=== PATIENT | male | born 1940 | race Caucasian/White ===

== ENCOUNTER 2017-05-30 09:48 | Inpatient (IN) | payer OTHER, MEDICARE ==
[~2017-05-30] VITALS: Ht 180.3 cm; Wt 61.0 kg
[~2017-05-30 09:48] MED LIST: AMOX875 PO; LISI-587 PO; MEDR4PAK3 PO; MEVA40TA PO; NAPR-576 PO
[2017-05-30 09:50] VITALS: BP 160/64; PULSE 102; RESP 20; TEMP 98; O2SAT 100
[2017-05-30] MEDS ORDERED: MECLIZINE HCL 25 MG TAB PO ONE (10:45)
[2017-05-30] MEDS ORDERED: ONDANSETRON ODT 4 MG TAB SL ONE (10:45)
--- NOTE | 2017-05-30 10:54 | PD ---
HPI Chief Complaint: Syncope/Near-Syncope Time Seen by Provider: 10:25 Travel History International Travel<30 days: No Contact w/Intl Traveler<30days: No Traveled to known affect area: No History of Present Illness HPI This patient complains of having vertigo this morning. He had a true room spinning sensation and got dizzy and fell. He did not lose consciousness. He is not having headache today. He does mention that he is had pain in the back of his neck for the last 3 weeks. No injury to it. Denies fever. No other neurologic complaint. He fell he scraped his left knee but is been ambulatory since. Severity is moderate. No alleviating factors. No exacerbating factors. Speech slurring or confusion or specific muscle group weakness. PFSH Past Medical History Hx Anticoagulant Therapy: No Arthritis: Yes Cardiovascular Problems: No (HTN) High Cholesterol: Yes Chemotherapy: No Cerebrovascular Accident: No Diabetes: No Hypertension: Yes Respiratory: No Tetanus Vaccination: < 5 Years Past Surgical History Surgical History: No Previous Surgery Social History Alcohol Use: Yes (OCC) Tobacco Use: No Substance Use: No Allergies-Medications (Allergen,Severity, Reaction): Coded Allergies: No Known Allergies (Unverified Adverse Reaction, Unknown, 05/30/17) Reported Meds & Prescriptions Reported Meds & Active Scripts Active Amoxil (Amoxicillin) 875 Mg Tab 875 Mg PO BID 10 Days Medrol Dosepak (Methylprednisolone) 4 Mg Franklyn 4 Mg PO DIRECTED TAKE DIRECTED Reported Zestoretic 20/25 (HCTZ/Lisinopril) Tab 1 Tab PO DAILY Naproxen 500 Mg Tab 500 Mg PO BID Lovastatin 40 Mg Tab 40 Mg PO HS Review of Systems General / Constitutional: No: Fever Eyes: No: Visual changes HENT: Positive: Vertigo, Lightheadedness, Neck Pain, No: Headaches Cardiovascular: No: Chest Pain or Discomfort Respiratory: No: Shortness of Breath Gastrointestinal: No: Abdominal Pain Genitourinary: No: Dysuria Musculoskeletal: Positive: Arthralgias, No: Pain Skin: No Rash Neurologic: No: Weakness Psychiatric: No: Depression Endocrine: No: Polydipsia Hematologic/Lymphatic: No: Easy Bruising Physical Exam Narrative GENERAL: Well-nourished, well-developed patient in no apparent distress. SKIN: Focused skin assessment reveals no rash and nodules. Skin is Warm and dry. HEAD: Atraumatic. Normocephalic. EYES: Pupils equal and round. No scleral icterus. No injection or drainage. ENT: No nasal bleeding or discharge. Mucous membranes pink and moist. NECK: Trachea midline. No JVD. No midline tenderness. No bruising or swelling. CARDIOVASCULAR: Regular rate and rhythm. No murmur appreciated. RESPIRATORY: No accessory muscle use. Clear to auscultation. Breath sounds equal bilaterally. GASTROINTESTINAL: Abdomen soft, non-tender, nondistended. Hepatic and splenic margins not palpable. MUSCULOSKELETAL: No obvious deformities. No clubbing. No cyanosis. No edema. Some abrasion to the left knee without tenderness NEUROLOGICAL: Awake and alert. No obvious cranial nerve deficits. Motor grossly within normal limits. Normal speech. PSYCHIATRIC: Appropriate mood and affect; insight and judgment normal. Data Data Last Documented VS Vital Signs Date Time Temp Pulse Resp B/P (MAP) Pulse Ox O2 Delivery O2 Flow Rate FiO2 05/30/17 09:50 98.0 102 20 160/64 (96) 100 Room Air Orders Orders Iv Access Insert/Monitor (05/30/17 10:32) Complete Blood Count With Diff (05/30/17 10:32) Basic Metabolic Panel (Bmp) (05/30/17 10:32) Spine, Cervical - Ltd (Ap&Lat) (05/30/17 ) Electrocardiogram (05/30/17 ) Meclizine (Antivert) (05/30/17 10:45) Ondansetron Odt (Zofran Odt) (05/30/17 10:45) Admit Order (Ed Use Only) (05/30/17 13:19) Labs Laboratory Tests Test 05/30/17 10:55 White Blood Count 8.2 TH/MM3 Red Blood Count 3.94 MIL/MM3 Hemoglobin 7.9 GM/DL Hematocrit 24.8 % Mean Corpuscular Volume 63.0 FL Mean Corpuscular Hemoglobin 20.0 PG Mean Corpuscular Hemoglobin Concent 31.8 % Red Cell Distribution Width 17.6 % Platelet Count 366 TH/MM3 Mean Platelet Volume 7.6 FL Neutrophils (%) (Auto) 78.8 % Lymphocytes (%) (Auto) 11.4 % Monocytes (%) (Auto) 8.1 % Eosinophils (%) (Auto) 0.3 % Basophils (%) (Auto) 1.4 % Neutrophils # (Auto) 6.4 TH/MM3 Lymphocytes # (Auto) 0.9 TH/MM3 Monocytes # (Auto) 0.7 TH/MM3 Eosinophils # (Auto) 0.0 TH/MM3 Basophils # (Auto) 0.1 TH/MM3 CBC Comment DIFF FINAL Differential Comment Blood Urea Nitrogen 32 MG/DL Creatinine 1.27 MG/DL Random Glucose 108 MG/DL Calcium Level 9.1 MG/DL Sodium Level 135 MEQ/L Potassium Level 4.1 MEQ/L Chloride Level 101 MEQ/L Carbon Dioxide Level 24.7 MEQ/L Anion Gap 9 MEQ/L Estimat Glomerular Filtration Rate 55 ML/MIN MDM Medical Decision Making Medical Screen Exam Complete: Yes Emergency Medical Condition: Yes Medical Record Reviewed: Yes Differential Diagnosis Vertigo, cardiac arrhythmia, flu syndrome Narrative Course I have reviewed the patient's electronic medical record. Last known hemoglobin was 15 No real objective findings on exam. He is neurologically intact. I gave him a dose of meclizine and Zofran IV placed CBC shows hemoglobin of 7.9 Metabolic profile reasonably normal other than elevated BUN is expected I reviewed his EKG which shows sinus rhythm and no ST elevation or ectopy I reviewed her cervical spine x-rays which shows minor degenerative change He has no meningeal signs This patient had a presyncopal episode as well as GI bleed with anemia. I discussed with the hospitalist will admit Since this hospital is full administration is asking that we admit them to the [facility] which I have done The hospitalist here is doing history and physical and writing admission orders Diagnosis Primary Impression: GI bleed Qualified Codes: K92.2 - Gastrointestinal hemorrhage, unspecified Additional Impressions: Anemia Qualified Codes: D64.9 - Anemia, unspecified Pre-syncope Admitting Information Admitting Physician Requests: Admit Donny Barrera MD May 30, 2017 10:54
--- NOTE | 2017-05-30 11:08 | RADRPT ---
EXAM DATE/TIME: 05/30/2017 10:41 [facility] COMPARISON: No previous studies available for comparison. INDICATIONS : Dizziness. Posterior neck stiffness. MEDICAL HISTORY : None. SURGICAL HISTORY : None. ENCOUNTER: Initial ACUITY: 1 day PAIN SCORE: 2/10 LOCATION: posterior c-spine FINDINGS: AP and lateral views of the cervical spine were obtained as well as odontoid views. This demonstrates mild osteopenia normal alignment. Degenerative disc changes are present at the C5-6 and C6-7 levels with mild disc space narrowing and hypertrophic change. The prevertebral soft tissues are within norm al limits. The dens is intact. CONCLUSION: 1. No acute fracture or malalignment. 2. Degenerative disc change at C5-6 and C6-7. Panchito Wilkes MD on May 30, 2017 at 11:05 Board Certified Radiologist. This report was verified electronically.
[2017-05-30 11:28] LABS: EOSINOPHIL % 0.3 % (0.0-4.0); HEMATOCRIT 24.8 % (39.0-51.0); HEMOGLOBIN 7.9 GM/DL (13.0-17.0); LYMPH % 11.4 % (9.0-44.0); MEAN CORPUSCULAR HGB CONC 31.8 % (32.0-36.0); MEAN PLATELET VOLUME 7.6 FL (7.0-11.0); MONO % 8.1 % (0.0-8.0); NEUT % 78.8 % (16.0-70.0); PLATELET COUNT 366 TH/MM3 (150-450); RED BLOOD COUNT 3.94 MIL/MM3 (4.50-5.90); RED CELL DISTRIBUTION WIDTH 17.6 % (11.6-17.2); WHITE BLOOD COUNT 8.2 TH/MM3 (4.0-11.0)
[2017-05-30 11:29] LABS: AUTOMATED NEUTROPHIL # 6.4 TH/MM3 (1.8-7.7); BASOPHIL # 0.1 TH/MM3 (0-0.2); BASOPHIL % 1.4 % (0.0-2.0); LYMPHOCYTE # 0.9 TH/MM3 (1.0-4.8); MONOCYTE # 0.7 TH/MM3 (0-0.9)
[2017-05-30 11:46] LABS: BICARBONATE 24.7 MEQ/L (21.0-32.0); CALCIUM 9.1 MG/DL (8.5-10.1); CREATININE 1.27 MG/DL (0.60-1.30)
--- NOTE | 2017-05-30 13:24 | HHI.HP ---
[facility] Primary Care Physician Magali Ordaz MD Admission Diagnosis Diagnoses: Chief Complaint: syncope, black stools Travel History International Travel<30 Days: No Contact w/Intl Traveler <30 Da: No Traveled to Known Affected Are: No History of Present Illness Written by Leslie Jackson, acting as scribe for Dr. Suazo on 05/30/17 at 13: 19. 76-year-old male with hypertension, hyperlipidemia, arthritis, presents after a syncopal episode with black stools. The patient reports earlier today while he was at work, he became dizzy with blurred vision, fell to the floor, attempted to ambulate again then passed out. Denies hitting his head. He presented to the ED with left knee pain. Upon arrival to the ED, labs remarkable for Hgb 7.9. He denies any history of anemia. He admits to noticing black stools for a few weeks now. Denies hematochezia, hematuria, or hematemesis. He denies any fever/ chills, abdominal pain, nausea, vomiting, or diarrhea. He believes he had an unremarkable colonoscopy 3-5years ago by colorectal surgeon Dr. Russell. He's never had an EGD. He admits to occasional shortness of breath, worse with exertion recently. Denies any chest pain. He's felt more fatigued over the past few weeks. His daughter reports he's lost "a lot" of weight over the past 6months but unable to quantify. He states his appetite is good and denies any recent changes in eating habits. He does state he had some vague abdominal pain 3 months ago, saw his PCP, and he was started on omeprazole at that time. He denies taking any NSAIDs. He follows with PCP Dr. Ordaz only. 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 Review of Systems Except as stated in HPI: all other systems reviewed are Neg Past Family Social History Past Medical History Hypertension Hyperlipidemia Past Surgical History Colonoscopy Reported Medications Zestoretic 20/25 (HCTZ/Lisinopril) Tab 1 Tab PO DAILY Lovastatin 40 Mg Tab 40 Mg PO HS Omeprazole 20mg daily Latanoprost opth eye drops 0.005% 2.5ML Allergies: Coded Allergies: No Known Allergies (Unverified Allergy, Unknown, 05/30/17) Active Ordered Medications Current Medications Medications (Trade) Dose Ordered Sig/Lito Route Start Time Stop Time Status Last Admin Sodium Chloride 250 ml @ 15 mls/hr ONCE ONCE IV 05/30/17 13:45 05/31/17 06:24 UNV (Lasix Inj) 20 mg ONCE ONCE IV PUSH 05/30/17 13:45 05/30/17 13:46 UNV (Vasotec Inj) 1.25 mg Q8H PRN IV PUSH 05/30/17 13:45 UNV Sodium Chloride 1,000 ml @ 75 mls/hr [id number] IV 05/30/17 13:33 UNV (NS Flush) 2 ml UNSCH PRN IV FLUSH 05/30/17 13:45 UNV (NS Flush) 2 ml BID IV FLUSH 05/30/17 21:00 UNV (Zofran Inj) 4 mg Q6H PRN IVP 05/30/17 13:45 UNV (Tylenol) 650 mg Q6H PRN PO 05/30/17 13:45 UNV (Pattison 5-325 Mg) 1 tab Q4H PRN PO 05/30/17 13:45 UNV (Morphine Inj) 2 mg Q4H PRN IV PUSH 05/30/17 13:45 UNV (Narcan Inj) 0.4 mg UNSCH PRN IV PUSH 05/30/17 13:45 UNV (Milk Of Magnesia Liq) 30 ml Q12H PRN PO 05/30/17 13:45 UNV (Senokot) 17.2 mg Q12H PRN PO 05/30/17 13:45 UNV (Dulcolax Supp) 10 mg DAILY PRN RECTAL 05/30/17 13:45 UNV (Protonix Inj) 40 mg Q12H IV PUSH 05/30/17 13:45 UNV Family History Mother with heart disease age 89 Father age 96 with heart attack Social History Smoked tobacco for 5 years, quit 45 years ago Very rare alcohol use Denies any illicit drug use Physical Exam Vital Signs Vital Signs Date Time Temp Pulse Resp B/P (MAP) Pulse Ox O2 Delivery O2 Flow Rate FiO2 05/30/17 09:50 98.0 102 20 160/64 (96) 100 Room Air Physical Exam GENERAL: Well-developed well-nourished pleasant elderly male patient in [facility]. SKIN: Warm and dry. Pale. HEAD: Atraumatic. Normocephalic. EYES: Pupils equal and round. Subconjunctival pallor. No scleral icterus. ENT: No nasal bleeding or discharge. Mucous membranes pink and moist. NECK: Trachea midline. CARDIOVASCULAR: Regular rate and rhythm. No murmur appreciated. RESPIRATORY: No accessory muscle use. Clear to auscultation. Breath sounds equal bilaterally. GASTROINTESTINAL: Abdomen soft, non-tender, nondistended. Hepatic and splenic margins not palpable. MUSCULOSKELETAL: Extremities without clubbing, cyanosis, or edema. No obvious deformities. NEUROLOGICAL: Awake and alert. No obvious cranial nerve deficits. Motor grossly within normal limits. Moving all extremities spontaneously. Normal speech. PSYCHIATRIC: Appropriate mood and affect; insight and judgment normal. Laboratory Laboratory Tests Test 05/30/17 10:55 White Blood Count 8.2 Red Blood Count 3.94 Hemoglobin 7.9 Hematocrit 24.8 Mean Corpuscular Volume 63.0 Mean Corpuscular Hemoglobin 20.0 Mean Corpuscular Hemoglobin Concent 31.8 Red Cell Distribution Width 17.6 Platelet Count 366 Mean Platelet Volume 7.6 Neutrophils (%) (Auto) 78.8 Lymphocytes (%) (Auto) 11.4 Monocytes (%) (Auto) 8.1 Eosinophils (%) (Auto) 0.3 Basophils (%) (Auto) 1.4 Neutrophils # (Auto) 6.4 Lymphocytes # (Auto) 0.9 Monocytes # (Auto) 0.7 Eosinophils # (Auto) 0.0 Basophils # (Auto) 0.1 CBC Comment DIFF FINAL Differential Comment Blood Urea Nitrogen 32 Creatinine 1.27 Random Glucose 108 Calcium Level 9.1 Sodium Level 135 Potassium Level 4.1 Chloride Level 101 Carbon Dioxide Level 24.7 Anion Gap 9 Estimat Glomerular Filtration Rate 55 Result Diagram: 05/30/17 1055 05/30/17 1055 Imaging Last Impressions Cervical Spine X-Ray 05/30/17 0000 Signed Impressions: Service Date/Time: May 10:41 - CONCLUSION: 1. No acute fracture or malalignment. 2. Degenerative disc change at C5-6 and C6-7. MD Shabana Nieves VTE Risk Assessment Caprini VTE Risk Assessment: Mod/High Risk (score >= 2) VTE Pharm Contraindication: Active bleeding Caprini Risk Assessment Model Point Value = 1 Point Value = 2 Point Value = 3 Point Value = 5 Age 41-60 Minor surgery BMI > 25 kg/m2 Swollen legs Varicose veins or History of unexplained or recurrent spontaneous Oral contraceptives or hormone replacement Sepsis (< 1 month) Serious lung disease, including pneumonia (< 1 month) Abnormal pulmonary function Acute myocardial infarction Congestive heart failure (< 1 month) History of inflammatory bowel disease Medical patient at bed rest Age 61-74 Arthroscopic surgery Major open surgery (> 45 min) Laparoscopic surgery (> 45 min) Malignancy Confined to bed (> 72 hours) Immobilizing plaster cast Central venous access Age >= 75 History of VTE Family history of VTE Factor V Leiden Prothrombin [id number] Lupus anticoagulant Anticardiolipin antibodies Elevated serum homocysteine Heparin-induced thrombocytopenia Other congenital or acquired thrombophilia Stroke (< 1 month) Elective arthroplasty Hip, pelvis, or leg fracture Acute spinal cord injury (< 1 month) Prophylaxis Regimen Total Risk Factor Score Risk Level Prophylaxis Regimen 0-1 Low Early ambulation 2 Moderate Order ONE of the following: *Sequential Compression Device (SCD) *Heparin 5000 units SQ BID 3-4 Higher Order ONE of the following medications: *Heparin 5000 units SQ TID *Enoxaparin/Lovenox 40 mg SQ daily (WT < 150 kg, CrCl > 30 mL/min) *Enoxaparin/Lovenox 30 mg SQ daily (WT < 150 kg, CrCl > 10-29 mL/min) *Enoxaparin/Lovenox 30 mg SQ BID (WT < 150 kg, CrCl > 30 mL/min) AND/OR *Sequential Compression Device (SCD) 5 or more Highest Order ONE of the following medications: *Heparin 5000 units SQ TID (Preferred with Epidurals) *Enoxaparin/Lovenox 40 mg SQ daily (WT < 150 kg, CrCl > 30 mL/min) *Enoxaparin/Lovenox 30 mg SQ daily (WT < 150 kg, CrCl > 10-29 mL/min) *Enoxaparin/Lovenox 30 mg SQ BID (WT < 150 kg, CrCl > 30 mL/min) AND *Sequential Compression Device (SCD) Assessment and Plan Assessment and Plan 76-year-old male with hypertension, hyperlipidemia, arthritis, presents after a syncopal episode with black stools. Symptomatic Anemia suspect secondary to GI Bleed: Hgb 7.9, previously 15.9 in 2012. Rectal exam done by ER physician positive for melena, Hemoccult+. -transfuse 2u pRBCs now -monitor serial H&H -keep NPO for now -start on IV Protonix 40mg q12h -supportive treatment with IVF hydration, antiemetics prn, pain control prn -consult gastroenterology Syncope: suspect secondary to anemia as above in combination with mild dehydration. -giving blood transfusion x2u -continue IVF hydration -monitor for improvement Dehydration, Mild ADRIENNE: Cr 1.27, previously 0.93 in 2012. -give IVF hydration at 75cc/hr -repeat BMP in am Hypertension: chronic, stable -hold patient lisinopril and hctz for now -monitor BP, add antihypertensives as needed DVT Prophylaxis: teds/SCDs; avoid chemoprophylaxis with GI bleed as above the above note was scribed by Ms. Leslie Jackson ( MELL). I attest that I had a [id number] encounter with the patient and personally performed the physical exam, medical decision making and reviewed the findings and plan with the patient. Leslie Jackson PA-C May 30, 2017 13:23 Madina Suazo MD May 30, 2017 14:24
[2017-05-30] MEDS ORDERED: SENNOSIDES 8.6 MG TAB PO PRN (13:45)
[2017-05-30] MEDS ORDERED: SODIUM CHLORIDE 0.9% FLUSH 10 ML FLUSH IV FLUSH PRN (13:45)
[2017-05-30] MEDS ORDERED: SODIUM CHLOR 0.9% 250 ML INJ 250 ML IV ONE (13:45)
[2017-05-30] MEDS ORDERED: BISACODYL 10 MG SUPP RECTAL PRN (13:45)
[2017-05-30] MEDS ORDERED: MAGNESIUM HYDROXIDE SUSP 30 ML CUP PO PRN (13:45)
[2017-05-30] MEDS ORDERED: ACETAMINOPHEN/HYDROcodone 325 MG/5 MG TAB PO PRN (13:45)
[2017-05-30] MEDS ORDERED: MORPHINE SULFATE 2 MG/ML INJ IV PUSH PRN (13:45)
[2017-05-30] MEDS ORDERED: ENALAPRILAT 1.25 MG/ML VIAL IV PUSH PRN (13:45)
[2017-05-30] MEDS ORDERED: ONDANSETRON HCL 4 MG/2 ML VIAL IVP PRN (13:45)
[2017-05-30] MEDS ORDERED: NALOXONE HCL 0.4 MG/ML AMP IV PUSH PRN (13:45)
[2017-05-30] MEDS ORDERED: ACETAMINOPHEN 325 MG TAB PO PRN (13:45)
[2017-05-30] MEDS ORDERED: OMEP20TA93 PO (13:48)
[2017-05-30] MEDS ORDERED: LISI-515 PO (13:51)
[2017-05-30] MEDS ORDERED: LOVA40TA PO (13:51)
[2017-05-30] MEDS ORDERED: LATA0.002 EACH EYE (13:51)
[2017-05-30] MEDS ORDERED: FUROSEMIDE 20 MG/2 ML VIAL IV PUSH PRN (14:00)
[2017-05-30] MEDS: SODIUM CHLOR 0.9% 1000 ML INJ 1,000 ML IV SCH (14:37)
[2017-05-30] MEDS: PANTOPRAZOLE SODIUM 40 MG VIAL IV PUSH SCH (14:37)
[2017-05-30 14:45] VITALS: BP 133/65; PULSE 72; RESP 18; O2SAT 100
--- NOTE | 2017-05-30 15:36 | PD.CONS ---
HPI History of Present Illness This is a 76 year old M who presented to the emergency department today after having a syncopal episode at 4:30am this morning. Denies chest pain of SOB prior to episode. Pt reports black, tarry stools for the past month, has been having about one BM a day, but today reports having multiple. Also complaining of intermittent epigastric and upper abdominal pain for the past month. Was recently started on Omeprazole by his PCP with mild relief in pain. Denies nausea, vomiting. Does report an unintentional weight loss of approx 20 pounds over the past month. Denies NSAIDs, blood thinners, ETOH, smoking. Has never had an EGD. Last colonoscopy was 3-[address] Russell and pt reports normal exam. Currently H/H are 7.9/24.8. Pt is being transferred to [facility] in [place] due to no beds available at this facility. Pt to be followed by our service, Dr. Cantu. (Aliya Garcia) PFSH Past Medical History Hypertension Hyperlipidemia Past Surgical History Colonoscopy (Aliya Garcia) Coded Allergies: No Known Allergies (Unverified Allergy, Unknown, 05/30/17) Family History Mother with heart disease age 89 Father age 96 with heart attack Social History Smoked tobacco for 5 years, quit 45 years ago Denies ETOH Denies any illicit drug use (Aliya Garcia) Review of Systems Constitutional: COMPLAINS OF: Dizziness Respiratory: DENIES: Shortness of breath Cardiovascular: DENIES: Chest pain, Palpitations Gastrointestinal: COMPLAINS OF: Abdominal pain, Black stools, DENIES: Bloody stools, Constipation, Diarrhea, Nausea, Vomiting, Odynophagia, Heartburn, Hematemesis (Aliya Garcia) GI Exam Vitals I&O Vital Signs Date Time Temp Pulse Resp B/P (MAP) Pulse Ox O2 Delivery O2 Flow Rate FiO2 05/30/17 14:45 72 18 133/65 (87) 100 Room Air 05/30/17 09:50 98.0 102 20 160/64 (96) 100 Room Air Imaging Last Impressions Cervical Spine X-Ray 05/30/17 0000 Signed Impressions: Service Date/Time: May 10:41 - CONCLUSION: 1. No acute fracture or malalignment. 2. Degenerative disc change at C5-6 and C6-7. Panchito Wilkes MD Laboratory Test 05/30/17 10:55 White Blood Count 8.2 TH/MM3 Red Blood Count 3.94 MIL/MM3 Hemoglobin 7.9 GM/DL Hematocrit 24.8 % Mean Corpuscular Volume 63.0 FL Mean Corpuscular Hemoglobin 20.0 PG Mean Corpuscular Hemoglobin Concent 31.8 % Red Cell Distribution Width 17.6 % Platelet Count 366 TH/MM3 Mean Platelet Volume 7.6 FL Neutrophils (%) (Auto) 78.8 % Lymphocytes (%) (Auto) 11.4 % Monocytes (%) (Auto) 8.1 % Eosinophils (%) (Auto) 0.3 % Basophils (%) (Auto) 1.4 % Neutrophils # (Auto) 6.4 TH/MM3 Lymphocytes # (Auto) 0.9 TH/MM3 Monocytes # (Auto) 0.7 TH/MM3 Eosinophils # (Auto) 0.0 TH/MM3 Basophils # (Auto) 0.1 TH/MM3 CBC Comment DIFF FINAL Differential Comment Blood Urea Nitrogen 32 MG/DL Creatinine 1.27 MG/DL Random Glucose 108 MG/DL Calcium Level 9.1 MG/DL Sodium Level 135 MEQ/L Potassium Level 4.1 MEQ/L Chloride Level 101 MEQ/L Carbon Dioxide Level 24.7 MEQ/L Anion Gap 9 MEQ/L Estimat Glomerular Filtration Rate 55 ML/MIN Physical Examination HEENT: Normocephalic; atraumatic CHEST: Even/unlabored CARDIAC: RRR ABDOMEN: Soft, nondistended, nontender; no hepatosplenomegaly; bowel sounds active EXTREMITIES: No clubbing, cyanosis, or edema. SKIN: No rash; no jaundice. Abrasion to left knee and left elbow. 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 (Aliya Garcia) Assessment and Plan Plan Assessment - Melena- Complaining of black, tarry stools x 1 month, increasing in frequency today. Presented after syncopal episode. H/H currently 7.9/24.8. Denies NSAIDs, blood thinners, ETOH, smoking. Has never had EGD. Plan for EGD tomorrow. Pt has 2 U PRBC ordered per attending. - Weight loss- 20 pound weight loss over the past month. Last colonoscopy was approx 3-5 years ago, reports normal exam. Will plan for CT abdomen and pelvis today and colonoscopy tomorrow. Plan: - EGD/colonoscopy tomorrow - Obtain consents - Clear liquids today - NPO after MN - GoLytely prep - CT abdomen and pelvis W/O IV contrast (due to GFR 55) - Monitor H/H - Transfuse as needed - Protonix - Supportive care - Further recommendations to follow based on results of above (Aliya Garcia) Physician Comments seen, examined agree with above (Anne Slaughter MD) Aliya Garcia May 30, 2017 15:36 Anne Slaughter MD May 30, 2017 16:44
[2017-05-30 16:00] VITALS: BP 146/69; PULSE 76; RESP 18; TEMP 97.5; O2SAT 100
[2017-05-30] MEDS ORDERED: PEG (High)/E-LYTE SOLN 4000 ML BTL PO ONE (16:00)
[2017-05-30 16:05] LABS: % SATURATION IRON PROFILE 2.4 % (20-50); ALBUMIN 3.9 GM/DL (3.4-5.0); ALT (GPT) 21 U/L (12-78); AST (GOT) 22 U/L (15-37); DIRECT BILIRUBIN ADULT 0.1 MG/DL (0.0-0.2); IRON (FE) 12 MCG/DL (65-175); TOTAL IRON BINDING CAPACITY 493 MCG/DL (250-450)
[2017-05-30 16:08] LABS: ALKALINE PHOSPHATASE 61 U/L (45-117); FERRITIN 5 NG/ML (26-388); INDIRECT BILIRUBIN 0.2 MG/DL (0.0-0.8); TOTAL BILIRUBIN ADULT 0.3 MG/DL (0.2-1.0); TOTAL PROTEIN 7.6 GM/DL (6.4-8.2)
[2017-05-30] MEDS ORDERED: DIATRIZOATE MEGLUM/DIATRIZOATE SOD 9 ML CUP PO ONE (18:45)
[2017-05-30] MEDS: SODIUM CHLORIDE 0.9% FLUSH 10 ML FLUSH IV FLUSH SCH (20:10)
[2017-05-30 20:48] VITALS: BP 143/65; PULSE 81; RESP 20; TEMP 97.6; O2SAT 100
[2017-05-30 21:03] VITALS: BP 116/57; PULSE 77; RESP 20; TEMP 98; O2SAT 99
[2017-05-30 23:45] VITALS: BP 125/60; PULSE 76; RESP 20; TEMP 97.7; O2SAT 98
[2017-05-31] VITALS: BP 132/66; PULSE 74; RESP 20; TEMP 97.1; O2SAT 99
[2017-05-31] MEDS: PANTOPRAZOLE SODIUM 40 MG VIAL IV PUSH SCH ×2 (02:47→12:41)
[2017-05-31 06:44] VITALS: BP 151/88; PULSE 78; RESP 20; TEMP 98.6; O2SAT 99
[2017-05-31 06:54] LABS: AUTOMATED NEUTROPHIL # 3.4 TH/MM3 (1.8-7.7); BASOPHIL % 0.9 % (0.0-2.0); EOSINOPHIL # 0.1 TH/MM3 (0-0.4); HEMATOCRIT 31.1 % (39.0-51.0); HEMOGLOBIN 9.5 GM/DL (13.0-17.0); LYMPH % 17.2 % (9.0-44.0); LYMPHOCYTE # 0.9 TH/MM3 (1.0-4.8); MEAN CELL VOLUME 69.3 FL (80.0-100.0); MEAN CORPUSCULAR HEMOGLOBIN 21.1 PG (27.0-34.0); MEAN CORPUSCULAR HGB CONC 30.4 % (32.0-36.0); MEAN PLATELET VOLUME 7.5 FL (7.0-11.0); MONO % 11.2 % (0.0-8.0); MONOCYTE # 0.6 TH/MM3 (0-0.9); NEUT % 68.7 % (16.0-70.0); PLATELET COUNT 263 TH/MM3 (150-450); RED CELL DISTRIBUTION WIDTH 22.2 % (11.6-17.2)
[2017-05-31 07:07] LABS: CALCIUM 8.5 MG/DL (8.5-10.1)
[2017-05-31 07:08] LABS: BICARBONATE 29.8 MEQ/L (21.0-32.0)
[2017-05-31 07:11] LABS: CREATININE 1.1 MG/DL (0.60-1.30)
[2017-05-31 07:31] LABS: OVALOCYTES 1+ (NORMAL)
--- NOTE | 2017-05-31 07:59 | PD.PROCEDR ---
GI Procedure PROCEDURE PERFORMED EGD with biopsy, colonoscopy INDICATION FOR PROCEDURE Anemia PROCEDURE: The procedure, risks and benefits were discussed with Mr. Arrington and informed consent was obtained. Anesthesia sedated him with Diprivan. He was placed in the left lateral decubitus position. EGD: The Pentax videoscope was introduced through the oropharynx and advanced to the second portion of the duodenum under direct visualization. Retroflexion was performed in the stomach. Large ulcerated mass in the body of the stomach most likely consistent with malignancy biopsy was done FINDINGS: Large gastric ulcerated mass in the body with fresh blood most likely the source of the bleeding Colonoscopy: The Pentax videoscope was introduced through the rectum and advanced to to the ascending colon, the colon was very tortuous and the scope kept looping, not sure if I reached the cecum. Retroflexion was performed in the rectum. Colonic prep was good, FINDINGS: Possibly incomplete colon, the examined area was normal ESTIMATED BLOOD LOSS: None SPECIMENS REMOVED: Body of the stomach COMPLICATIONS: None IMPRESSION: Gastric mass possible malignancy PLAN: Air contrast barium enema Oncology consult Surgical consult Await biopsy results CT of the abdomen and pelvis Aniya Cai MD May 31, 2017 07:59
--- NOTE | 2017-05-31 08:04 | HHI.GIFU ---
Subjective Remarks Patient laying in bed comfortably without any new complaint, no abdominal pain, tolerated prep Objective Vitals I&O Vital Signs Date Time Temp Pulse Resp B/P (MAP) Pulse Ox O2 Delivery O2 Flow Rate FiO2 05/31/17 06:44 98.6 78 20 151/88 (109) 99 05/31/17 00:00 97.1 74 20 132/66 99 05/30/17 23:45 97.7 76 20 125/60 98 05/30/17 21:03 98.0 77 20 116/57 99 05/30/17 20:48 97.6 81 20 143/65 100 05/30/17 16:00 97.5 76 18 146/69 (94) 100 05/30/17 15:24 05/30/17 14:45 72 18 133/65 (87) 100 Room Air 05/30/17 09:50 98.0 102 20 160/64 (96) 100 Room Air I/O 05/30/17 05/30/17 05/30/17 05/31/17 05/31/17 05/31/17 07:00 15:00 23:00 07:00 15:00 23:00 Intake Total 223 ml 800 ml Balance 223 ml 800 ml Intake Oral 0 ml IV Total 223 ml Packed Cells 800 ml # Voids 5 Laboratory Laboratory Tests Test 05/30/17 10:55 05/31/17 05:44 White Blood Count 8.2 5.0 Red Blood Count 3.94 4.50 Hemoglobin 7.9 9.5 Hematocrit 24.8 31.1 Mean Corpuscular Volume 63.0 69.3 Mean Corpuscular Hemoglobin 20.0 21.1 Mean Corpuscular Hemoglobin Concent 31.8 30.4 Red Cell Distribution Width 17.6 22.2 Platelet Count 366 263 Mean Platelet Volume 7.6 7.5 Neutrophils (%) (Auto) 78.8 68.7 Lymphocytes (%) (Auto) 11.4 17.2 Monocytes (%) (Auto) 8.1 11.2 Eosinophils (%) (Auto) 0.3 2.0 Basophils (%) (Auto) 1.4 0.9 Neutrophils # (Auto) 6.4 3.4 Lymphocytes # (Auto) 0.9 0.9 Monocytes # (Auto) 0.7 0.6 Eosinophils # (Auto) 0.0 0.1 Basophils # (Auto) 0.1 0.0 CBC Comment DIFF FINAL AUTO DIFF Differential Comment AUTO DIFF CONFIRMED Blood Urea Nitrogen 32 22 Creatinine 1.27 1.10 Random Glucose 108 78 Calcium Level 9.1 8.5 Sodium Level 135 140 Potassium Level 4.1 4.0 Chloride Level 101 104 Carbon Dioxide Level 24.7 29.8 Anion Gap 9 6 Estimat Glomerular Filtration Rate 55 65 Iron Level 12 Total Iron Binding Capacity 493 Percent Iron Saturation 2.4 Ferritin 5 Total Bilirubin 0.3 Direct Bilirubin 0.1 Indirect Bilirubin 0.2 Aspartate Amino Transf (AST/SGOT) 22 Alanine Aminotransferase (ALT/SGPT) 21 Alkaline Phosphatase 61 Total Protein 7.6 Albumin 3.9 Ovalocytes 1+ Physical Exam HEENT: Pupils round and reactive to light; normocephalic; atraumatic; no jaundice. Throat is clear. NECK: Neck is supple, no JVD, no lymphadenopathy. CHEST: Chest is clear to auscultation and percussion. CARDIAC: Regular rate and rhythm with no murmur gallop or rubs. ABDOMEN: Soft, nondistended, nontender; no hepatosplenomegaly; bowel sounds are present in all four quadrants. EXTREMITIES: No clubbing, cyanosis, or edema. SKIN: Normal; no rash; no jaundice. 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 Assessment and Plan Plan Assessment - Melena- Complaining of black, tarry stools x 1 month, increasing in frequency today. Presented after syncopal episode. H/H currently 7.9/24.8. Denies NSAIDs, blood thinners, ETOH, smoking. Has never had EGD. Plan for EGD tomorrow. Pt has 2 U PRBC ordered per attending. - Weight loss- 20 pound weight loss over the past month. Last colonoscopy was approx 3-5 years ago, reports normal exam. Will plan for CT abdomen and pelvis today and colonoscopy tomorrow. 05/31/2018 Patient hemoglobin is stable, no more bleeding, tolerated prep, did not get CT scan yet, had an upper endoscopy and a colonoscopy IMPRESSION: Gastric mass possible malignancy Redundant colon, not sure if we went all the way to the cecum PLAN: Air contrast barium enema Oncology consult Surgical consult Await biopsy results CT of the abdomen and pelvis Aniya Cai MD May 31, 2017 08:03
--- NOTE | 2017-05-31 08:19 | HHI.PR ---
Subjective Remarks Feels better today. Tired. No n/v/d/c. No abd pain . Denies chest pain or sob. Appetite is fairly well. Objective Vitals Vital Signs Date Time Temp Pulse Resp B/P (MAP) Pulse Ox O2 Delivery O2 Flow Rate FiO2 05/31/17 06:44 98.6 78 20 151/88 (109) 99 05/31/17 00:00 97.1 74 20 132/66 99 05/30/17 23:45 97.7 76 20 125/60 98 05/30/17 21:03 98.0 77 20 116/57 99 05/30/17 20:48 97.6 81 20 143/65 100 05/30/17 16:00 97.5 76 18 146/69 (94) 100 05/30/17 15:24 05/30/17 14:45 72 18 133/65 (87) 100 Room Air 05/30/17 09:50 98.0 102 20 160/64 (96) 100 Room Air I/O 05/30/17 05/30/17 05/30/17 05/31/17 05/31/17 05/31/17 07:00 15:00 23:00 07:00 15:00 23:00 Intake Total 223 ml 800 ml Balance 223 ml 800 ml Intake Oral 0 ml IV Total 223 ml Packed Cells 800 ml # Voids 5 Result Diagram: 05/31/17 0544 05/31/17 0544 Imaging Last Impressions Cervical Spine X-Ray 05/30/17 0000 Signed Impressions: Service Date/Time: May 10:41 - CONCLUSION: 1. No acute fracture or malalignment. 2. Degenerative disc change at C5-6 and C6-7. Panchito Wilkes MD Objective Remarks GENERAL: Well-developed well-nourished pleasant elderly male patient in [facility]. CARDIOVASCULAR: Regular rate and rhythm. No murmur appreciated. RESPIRATORY: No accessory muscle use. Clear to auscultation. Breath sounds equal bilaterally. GASTROINTESTINAL: Abdomen soft, non-tender, nondistended. Hepatic and splenic margins not palpable. MUSCULOSKELETAL: Extremities without clubbing, cyanosis, or edema. No obvious deformities. NEUROLOGICAL: Awake and alert. No obvious cranial nerve deficits. Motor grossly within normal limits. Moving all extremities spontaneously. Normal speech. PSYCHIATRIC: Appropriate mood and affect; insight and judgment normal. A/P Assessment and Plan 76-year-old male with hypertension, hyperlipidemia, arthritis, presents after a syncopal episode with black stools. Symptomatic Anemia secondary to GI Bleed from possible gastric mass S/P EGD with biopsy, colonoscopy. With Gastric mass possible malignancy Hgb 7.9, on admission, previously 15.9 in 2012. Rectal exam done by ER physician positive for melena, Hemoccult+. -s/p transfusion 2u pRBCs -monitor serial H&H -on IV Protonix 40mg q12h -supportive treatment with IVF hydration, antiemetics prn, pain control prn -consult gastroenterology, ff -S/P EGD with biopsy, colonoscopy. With Gastric mass possible malignancy -Air contrast barium enema -Oncology consult -Surgical consult -Biopsy results are oending -CT of the abdomen and pelvis Syncope: suspect secondary to anemia as above in combination with mild dehydration. -giving blood transfusion x2u -continue IVF hydration -monitor for improvement Dehydration, Mild ADRIENNE: Cr 1.27, previously 0.93 in 2012. -give IVF hydration at 75cc/hr -repeat BMP in am Hypertension: chronic, stable -hold patient lisinopril and hctz for now -monitor BP, add antihypertensives as needed DVT Prophylaxis: teds/SCDs; avoid chemoprophylaxis with GI bleed as above Discussed with the patient, nurse Rosangela Barksdale MD May 31, 2017 08:19
[2017-05-31 08:40] VITALS: BP 133/69; PULSE 63; RESP 18; TEMP 97; O2SAT 100
[2017-05-31] MEDS ORDERED: PNEUMOCOCCAL POLYVALENT INJ 25 MCG/0.5 ML SYR IM ONE (10:00)
[2017-05-31] MEDS: SODIUM CHLORIDE 0.9% FLUSH 10 ML FLUSH IV FLUSH SCH ×2 (11:10→20:00)
[2017-05-31] MEDS: SODIUM CHLOR 0.9% 1000 ML INJ 1,000 ML IV SCH ×2 (11:10→16:13)
[2017-05-31] MEDS ORDERED: DIATRIZOATE MEGLUM/DIATRIZOATE SOD 9 ML CUP PO ONE (11:45)
[2017-05-31 12:00] VITALS: BP_SYST 135; BP_SYST 142; BP_DIAS 67; PULSE 74; PULSE 78; RESP 18; TEMP 97.8; TEMP 99.1; O2SAT 98
[2017-05-31 13:50] LABS: CARCINOEMBRYONIC ANTIGEN 0.7 NG/ML (0.2-5.0)
[2017-05-31 14:26] LABS: CA 19-9 3.8 U/ML (0.0-35.0)
[2017-05-31 14:37] LABS: CA 15-3 18.2 U/ML (0.0-32.4)
--- NOTE | 2017-05-31 14:56 | RADRPT ---
EXAM DATE/TIME: 05/31/2017 13:24 [facility] COMPARISON: No previous studies available for comparison. INDICATIONS : Upper abdominal pain, black tarry stools and weight loss x 1 month. ORAL CONTRAST: Prescribed oral contrast ingested. RADIATION DOSE: 6.90 CTDIvol (mGy) MEDICAL HISTORY : Hypertension. SURGICAL HISTORY : None. ENCOUNTER: Initial ACUITY: 1 month PAIN SCALE: 2/10 LOCATION: upper quadrant TECHNIQUE: Volumetric scanning of the abdomen and pelvis was performed. Using automated exposure control and ad justment of the mA and/or kV according to patient size, radiation dose was kept as low as reasonably achievable to obtain optimal diagnostic quality images. DICOM format image data is available electro nically for review and comparison. FINDINGS: LOWER LUNGS: The visualized lower lungs are clear. LIVER: Homogeneous density without lesion. There is no dilation of the biliary tree. No calcified gallston es. SPLEEN: Normal size without lesion. PANCREAS: Within normal limits. KIDNEYS: Normal in size and shape. There is no mass, stone, or hydronephrosis. ADRENAL GLANDS: Within normal limits. VASCULAR: There is no aortic aneurysm. BOWEL/MESENTERY: There appears to be some lobular wall thickening involving the antrum of the stomach. There are some separate circumscribed lobular masses adjacent to the greater curvature in the region of the antrum a nd also in the gastrohepatic ligament which may be enlarged lymph nodes or other peritoneal masses. I ntravenous contrast would be required for better delineation. The large and small bowel are normal in caliber. There is a small volume of free pelvic fluid which is nonspecific. ABDOMINAL WALL: Within normal limits. RETROPERITONEUM: There is no lymphadenopathy. BLADDER: No wall thickening or mass. REPRODUCTIVE: Within normal limits. INGUINAL: There is no lymphadenopathy or hernia. MUSCULOSKELETAL: Within normal limits for patient age. CONCLUSION: Probable wall thickening involving the antrum of the stomach and adjacent lobular soft tissue density masses which may be enlarged lymph nodes or other peritoneal masses. Small volume of free pelvic flu id. CT of the abdomen with IV contrast would be suggested for further evaluation if feasible. Robert Morrissey MD on May 31, 2017 at 14:44 Board Certified Radiologist. This report was verified electronically.
--- NOTE | 2017-05-31 16:24 | PD.ONC.PN ---
Objective Data Date Time Temp Pulse Resp B/P (MAP) Pulse Ox O2 Delivery O2 Flow Rate FiO2 05/31/17 12:00 99.1 74 18 142/67 (92) 98 05/31/17 08:40 97.0 63 18 133/69 (90) 100 05/31/17 08:23 59 16 118/58 (78) 100 05/31/17 08:15 64 16 91/57 (68) 100 05/31/17 07:53 97.9 68 16 103/56 (72) 100 05/31/17 06:44 98.6 78 20 151/88 (109) 99 05/31/17 00:00 97.1 74 20 132/66 99 05/30/17 23:45 97.7 76 20 125/60 98 05/30/17 21:03 98.0 77 20 116/57 99 05/30/17 20:48 97.6 81 20 143/65 100 05/31/17 05/31/17 05/31/17 07:00 15:00 23:00 Intake Total 800 ml 950 ml Balance 800 ml 950 ml Result Diagram: 05/31/17 0544 05/31/17 0544 Laboratory Results Laboratory Tests Test 05/31/17 05:44 05/31/17 10:04 White Blood Count 5.0 TH/MM3 Red Blood Count 4.50 MIL/MM3 Hemoglobin 9.5 GM/DL Hematocrit 31.1 % Mean Corpuscular Volume 69.3 FL Mean Corpuscular Hemoglobin 21.1 PG Mean Corpuscular Hemoglobin Concent 30.4 % Red Cell Distribution Width 22.2 % Platelet Count 263 TH/MM3 Mean Platelet Volume 7.5 FL Neutrophils (%) (Auto) 68.7 % Lymphocytes (%) (Auto) 17.2 % Monocytes (%) (Auto) 11.2 % Eosinophils (%) (Auto) 2.0 % Basophils (%) (Auto) 0.9 % Neutrophils # (Auto) 3.4 TH/MM3 Lymphocytes # (Auto) 0.9 TH/MM3 Monocytes # (Auto) 0.6 TH/MM3 Eosinophils # (Auto) 0.1 TH/MM3 Basophils # (Auto) 0.0 TH/MM3 CBC Comment AUTO DIFF Differential Comment AUTO DIFF CONFIRMED Ovalocytes 1+ Blood Urea Nitrogen 22 MG/DL Creatinine 1.10 MG/DL Random Glucose 78 MG/DL Calcium Level 8.5 MG/DL Sodium Level 140 MEQ/L Potassium Level 4.0 MEQ/L Chloride Level 104 MEQ/L Carbon Dioxide Level 29.8 MEQ/L Anion Gap 6 MEQ/L Estimat Glomerular Filtration Rate 65 ML/MIN Carcinoembryonic Antigen 0.7 NG/ML CA 15-3 Antigen 18.2 U/ML CA 19-9 Antigen 3.8 U/ML Imaging Studies Last 24 hours Impressions Abdomen/Pelvis CT 05/31/17 0000 Signed Impressions: Service Date/Time: Wednesday, May 31, 2017 13:24 - CONCLUSION: Probable wall thickening involving the antrum of the stomach and adjacent lobular soft tissue density masses which may be enlarged lymph nodes or other peritoneal masses. Small volume of free pelvic fluid. CT of the abdomen with IV contrast would be suggested for further evaluation if feasible. Robert Morrissey MD Administered Medications Medications (Trade) Dose Ordered Sig/Lito Route PRN Reason Start Time Stop Time Status Last Admin Dose Admin Sodium Chloride 1,000 ml @ 75 mls/hr [id number] IV 05/30/17 13:33 05/31/17 11:10 Sodium Chloride (NS Flush) 2 ml BID IV FLUSH 05/30/17 21:00 05/31/17 11:10 Pantoprazole Sodium (Protonix Inj) 40 mg Q12H IV PUSH 05/30/17 14:00 05/31/17 12:41 Objective Remarks GENERAL: Well-nourished, well-developed patient. SKIN: Warm and dry. HEAD: Normocephalic. EYES: No scleral icterus. No injection or drainage. NECK: Supple, trachea midline. No JVD or lymphadenopathy. LYMPHATIC: No adenopathy. CARDIOVASCULAR: Regular rate and rhythm without murmurs. RESPIRATORY: Breath sounds equal bilaterally. No accessory muscle use. GASTROINTESTINAL: Abdomen soft, non-tender, nondistended. EXTREMITIES: No cyanosis, or edema. MUSCULOSKELETAL: Adequate muscle tone. NEUROLOGICAL: No obvious focal deficit. Awake, alert, and oriented x3. PSYCHIATRIC: Appropriate mood and affect; insight and judgment normal. Josué Roa MD May 31, 2017 16:24
--- NOTE | 2017-05-31 16:45 | EKG ---
Date Performed: 05/30/2017 Time Performed: 11:28:31 PTAGE: 76 years EKG: Sinus rhythm NORMAL ECG NO PREVIOUS TRACING DOCTOR: Kalpesh Ivey Interpretating Date/Time 05/31/2017 16:45:19
[2017-05-31 17:36] VITALS: BP 140/8; PULSE 80; RESP 20; TEMP 98; O2SAT 96
--- NOTE | 2017-05-31 17:55 | RADRPT ---
EXAM DATE/TIME: 05/31/2017 13:36 [facility] COMPARISON: No previous studies available for comparison. INDICATIONS : Black stools, weight loss, upper abdomen pain, incomplete colonoscopy FLUORO TIME: 2.2 minutes IMAGE COUNT: 27 CONTRAST: 1. Polibar ACB Barium Sulfate (96% w/w) MEDICAL HISTORY : Hypertension. SURGICAL HISTORY : None. ENCOUNTER: Subsequent ACUITY: 1 month PAIN SCORE: 1/10 LOCATION: Bilateral abdomen FINDINGS: A balloon tip catheter was inserted into the rectum, and air and barium was instilled under fluorosco pic control. The study was limited as the patient lost the tip of the rectal tube twice during the ex amination and during the overhead examination. Barium flows freely to the cecum without obstruction. The colon is of a normal diameter. There are no fixed polypoid filling defects or annular constricting lesions identified. There is scattered angel ris in the colon. Intermittent filling defects were seen secondary to the debris. A persistent reprod ucible filling defect to suggest an actual polypoid lesion was not clearly seen. No diverticula are seen. A small amount of contrast is seen in the terminal ileum at the conclusion of the study. The appendix was not seen. CONCLUSION: Negative air contrast barium enema with scattered debris. Robert Harris MD on May 31, 2017 at 17:48 Board Certified Radiologist. This report was verified electronically.
--- NOTE | 2017-05-31 18:56 | PD.ONC.PN ---
Subjective Subjective Remarks Mr. Arrington was seen and examined, vital signs, labs, medications were reviewed, EGD results were reviewed, CT images were reviewed. Subjectively he reports loss of appetite, epigastric abdominal pain, night sweats and a proximally 40 pound weight loss over the past 2 months. Mr. Arrington reports being in his usual fair state of health up until about a week ago when he began to feel lightheaded while lifting. He passed out and fell on the concrete injuring his head and scraping his knees. He came to spontaneously but after this felt too weak to return to work. He presented to the emergency department where he was noted to have severe microcytic anemia. Stool for occult blood was positive. CT abdomen and pelvis revealed antral thickening with enlarged lymph nodes adjacent to the gastric antrum. EGD was performed on 05/31/2017 and a large ulcerated mass was identified within the gastric antrum. Biopsies were obtained. I was asked to meet with the patient and his family to discuss the results of the EGD and to discuss possible additional workup and management. 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 Past medical history: Hypertension next hyperlipidemia. Past surgical history: Patient denies ever having had any surgeries other then the EGD performed today and a previous colonoscopy in 2015. Family history: Father and brothers with heart disease. Parents are both , no oncologic diagnoses noted in the family. Social history: Patient lives at home with his , he has 2 adult children. The patient reports originally being from [place] but he lived and worked most of his life in [facility]. He reports being a former smoker having smoked a total of about 5 years but he quit 45 years ago. He denies alcohol consumption or abuse. Allergies no known drug allergies. Objective Data Date Time Temp Pulse Resp B/P (MAP) Pulse Ox O2 Delivery O2 Flow Rate FiO2 05/31/17 12:00 97.8 78 18 135/67 (89) 98 05/31/17 12:00 99.1 74 18 142/67 (92) 98 05/31/17 08:40 97.0 63 18 133/69 (90) 100 05/31/17 08:23 59 16 118/58 (78) 100 05/31/17 08:15 64 16 91/57 (68) 100 05/31/17 07:53 97.9 68 16 103/56 (72) 100 05/31/17 06:44 98.6 78 20 151/88 (109) 99 05/31/17 00:00 97.1 74 20 132/66 99 05/30/17 23:45 97.7 76 20 125/60 98 05/30/17 21:03 98.0 77 20 116/57 99 05/30/17 20:48 97.6 81 20 143/65 100 05/31/17 05/31/17 05/31/17 07:00 15:00 23:00 Intake Total 800 ml 1500 ml 500 ml Balance 800 ml 1500 ml 500 ml Result Diagram: 05/31/17 0544 05/31/17 0544 Laboratory Results Laboratory Tests Test 05/31/17 05:44 05/31/17 10:04 White Blood Count 5.0 TH/MM3 Red Blood Count 4.50 MIL/MM3 Hemoglobin 9.5 GM/DL Hematocrit 31.1 % Mean Corpuscular Volume 69.3 FL Mean Corpuscular Hemoglobin 21.1 PG Mean Corpuscular Hemoglobin Concent 30.4 % Red Cell Distribution Width 22.2 % Platelet Count 263 TH/MM3 Mean Platelet Volume 7.5 FL Neutrophils (%) (Auto) 68.7 % Lymphocytes (%) (Auto) 17.2 % Monocytes (%) (Auto) 11.2 % Eosinophils (%) (Auto) 2.0 % Basophils (%) (Auto) 0.9 % Neutrophils # (Auto) 3.4 TH/MM3 Lymphocytes # (Auto) 0.9 TH/MM3 Monocytes # (Auto) 0.6 TH/MM3 Eosinophils # (Auto) 0.1 TH/MM3 Basophils # (Auto) 0.0 TH/MM3 CBC Comment AUTO DIFF Differential Comment AUTO DIFF CONFIRMED Ovalocytes 1+ Blood Urea Nitrogen 22 MG/DL Creatinine 1.10 MG/DL Random Glucose 78 MG/DL Calcium Level 8.5 MG/DL Sodium Level 140 MEQ/L Potassium Level 4.0 MEQ/L Chloride Level 104 MEQ/L Carbon Dioxide Level 29.8 MEQ/L Anion Gap 6 MEQ/L Estimat Glomerular Filtration Rate 65 ML/MIN Carcinoembryonic Antigen 0.7 NG/ML CA 15-3 Antigen 18.2 U/ML CA 19-9 Antigen 3.8 U/ML Imaging Studies Last 24 hours Impressions Barium Enema w/Air Contrast 1/12/18 0000 Signed Impressions: Service Date/Time: Wednesday, May 31, 2017 13:36 - CONCLUSION: Negative air contrast barium enema with scattered debris. Robert Harris MD Abdomen/Pelvis CT 05/31/17 0000 Signed Impressions: Service Date/Time: Wednesday, May 31, 2017 13:24 - CONCLUSION: Probable wall thickening involving the antrum of the stomach and adjacent lobular soft tissue density masses which may be enlarged lymph nodes or other peritoneal masses. Small volume of free pelvic fluid. CT of the abdomen with IV contrast would be suggested for further evaluation if feasible. Robert Morrissey MD Administered Medications Medications (Trade) Dose Ordered Sig/Lito Route PRN Reason Start Time Stop Time Status Last Admin Dose Admin Sodium Chloride 1,000 ml @ 75 mls/hr [id number] IV 05/30/17 13:33 05/31/17 16:13 Sodium Chloride (NS Flush) 2 ml BID IV FLUSH 05/30/17 21:00 05/31/17 11:10 Pantoprazole Sodium (Protonix Inj) 40 mg Q12H IV PUSH 05/30/17 14:00 05/31/17 12:41 Objective Remarks GENERAL: Elderly male, sitting up in bed, he appears to be in no acute distress has a pleasant disposition, he appears to be thin but not cachectic. SKIN: Warm and dry. HEAD: Normocephalic. EYES: No scleral icterus. No injection or drainage. NECK: Supple, trachea midline. No JVD or lymphadenopathy. LYMPHATIC: No adenopathy. CARDIOVASCULAR: Regular rate and rhythm without murmurs. RESPIRATORY: Breath sounds equal bilaterally. No accessory muscle use. GASTROINTESTINAL: Abdomen soft, non-tender, nondistended. Thin abdomen, no organ enlargement noted. EXTREMITIES: No cyanosis, or edema. MUSCULOSKELETAL: Generally decreased muscle mass, adequate tone and strength. NEUROLOGICAL: No obvious focal deficit. Awake, alert, and oriented x3. PSYCHIATRIC: Appropriate mood and affect; insight and judgment normal. Assessment/Plan Assessment Mr. Arrington is a 76 male who was well up until about a week ago, he had a syncopal episode while at work, he presented to the hospital for further workup and evaluation. When asked he reports a history of unintended weight loss of the past 3 months during which time he lost about 40 pounds. The patient was found to have microcytic anemia on blood work and stool positive for occult blood. CT imaging of the abdomen and pelvis indicates thickening of the antral wall and lymphadenopathy adjacent to the gastric antrum. EGD revealed a large ulcer in the gastric antrum which has been biopsied; EGD performed on 2017. Plan 1. Gastric antral ulcer: Await pathology. Differential diagnoses include primary gastric malignancy versus lymphoid malignancy such as diffuse large B- cell lymphoma. I did talk to the patient, his and his children about the staging workup which will be required. The patient has requested to follow up with me at my [place] office because of our acquaintance through through our common employer. Disposition: He may be discharged home when he is able to tolerate by mouth intake. I would recommend oral iron replacement therapy for management of symptomatic anemia. LDH will be ordered because lymphoma is in the differential diagnosis. Maycol Bird MD May 31, 2017 18:56
[2017-05-31 20:00] VITALS: BP 133/61; PULSE 84; RESP 20; TEMP 98.5; O2SAT 97
[2017-06-01] VITALS: BP 133/62; PULSE 80; RESP 20; TEMP 97.5; O2SAT 97
[2017-06-01] MEDS: PANTOPRAZOLE SODIUM 40 MG VIAL IV PUSH SCH ×2 (01:52→14:38)
[2017-06-01] MEDS: SODIUM CHLOR 0.9% 1000 ML INJ 1,000 ML IV SCH (05:41)
[2017-06-01 08:00] VITALS: BP 141/70; PULSE 69; RESP 18; TEMP 98.9; O2SAT 97
[2017-06-01 08:06] LABS: AUTOMATED NEUTROPHIL # 3.6 TH/MM3 (1.8-7.7); BASOPHIL % 0.8 % (0.0-2.0); EOSINOPHIL # 0.1 TH/MM3 (0-0.4); EOSINOPHIL % 2.2 % (0.0-4.0); HEMOGLOBIN 9.3 GM/DL (13.0-17.0); LYMPH % 17.6 % (9.0-44.0); LYMPHOCYTE # 0.9 TH/MM3 (1.0-4.8); MEAN CELL VOLUME 69.6 FL (80.0-100.0); MEAN CORPUSCULAR HEMOGLOBIN 22.4 PG (27.0-34.0); MEAN CORPUSCULAR HGB CONC 32.2 % (32.0-36.0); MEAN PLATELET VOLUME 7.3 FL (7.0-11.0); MONO % 11.4 % (0.0-8.0); MONOCYTE # 0.6 TH/MM3 (0-0.9); PLATELET COUNT 256 TH/MM3 (150-450); RED BLOOD COUNT 4.16 MIL/MM3 (4.50-5.90); RED CELL DISTRIBUTION WIDTH 22.3 % (11.6-17.2); WHITE BLOOD COUNT 5.2 TH/MM3 (4.0-11.0)
[2017-06-01 08:13] LABS: CHLORIDE 108 MEQ/L (98-107); SODIUM (NA) 142 MEQ/L (136-145)
[2017-06-01 08:16] LABS: BICARBONATE 28.3 MEQ/L (21.0-32.0); BLOOD UREA NITROGEN 20 MG/DL (7-18); CALCIUM 8.4 MG/DL (8.5-10.1); GLUCOSE,RANDOM 93 MG/DL (74-106)
[2017-06-01 08:20] LABS: CREATININE 0.89 MG/DL (0.60-1.30); GLOMERULAR FILTRATION RATE 83 ML/MIN (>89)
[2017-06-01 08:47] LABS: OVALOCYTES 1+ (NORMAL)
[2017-06-01] MEDS: SODIUM CHLORIDE 0.9% FLUSH 10 ML FLUSH IV FLUSH SCH (09:03)
--- NOTE | 2017-06-01 09:11 | HHI.PR ---
Subjective Remarks The patient is in the bed appears not to be distress his ambulating without any problems. Feels weak. No nausea or vomiting no diarrhea or constipation. Had a normal bowel movement no blood in it. No melena. Eating but not much. Denies abdominal pain. No chest pain shortness of breath. No palpitations. Objective Vitals Vital Signs Date Time Temp Pulse Resp B/P (MAP) Pulse Ox O2 Delivery O2 Flow Rate FiO2 06/01/17 08:00 98.9 69 18 141/70 (93) 97 06/01/17 00:00 97.5 80 20 133/62 (85) 97 05/31/17 20:00 98.5 84 20 133/61 (85) 97 05/31/17 17:36 98.0 80 20 140/8 (52) 96 05/31/17 12:00 97.8 78 18 135/67 (89) 98 05/31/17 12:00 99.1 74 18 142/67 (92) 98 I/O 05/31/17 05/31/17 05/31/17 06/01/17 06/01/17 06/01/17 07:00 15:00 23:00 07:00 15:00 23:00 Intake Total 800 ml 1500 ml 1060 ml 1240 ml Balance 800 ml 1500 ml 1060 ml 1240 ml Intake Oral 0 ml 550 ml 400 ml 240 ml IV Total 660 ml 1000 ml Packed Cells 800 ml Other 950 ml # Voids 5 5 4 3 # Bowel Movements 1 1 Result Diagram: 06/01/17 0735 06/01/17 0735 Imaging Last Impressions Barium Enema w/Air Contrast 05/31/17 0000 Signed Impressions: Service Date/Time: Wednesday, May 31, 2017 13:36 - CONCLUSION: Negative air contrast barium enema with scattered debris. Robert Harris MD Abdomen/Pelvis CT 05/31/17 0000 Signed Impressions: Service Date/Time: Wednesday, May 31, 2017 13:24 - CONCLUSION: Probable wall thickening involving the antrum of the stomach and adjacent lobular soft tissue density masses which may be enlarged lymph nodes or other peritoneal masses. Small volume of free pelvic fluid. CT of the abdomen with IV contrast would be suggested for further evaluation if feasible. Robert Morrissey MD Cervical Spine X-Ray 05/30/17 0000 Signed Impressions: Service Date/Time: May 10:41 - CONCLUSION: 1. No acute fracture or malalignment. 2. Degenerative disc change at C5-6 and C6-7. Panchito Wilkes MD Objective Remarks GENERAL: Well-developed well-nourished pleasant elderly male patient in [place]. CARDIOVASCULAR: Regular rate and rhythm. No murmur appreciated. RESPIRATORY: No accessory muscle use. Clear to auscultation. Breath sounds equal bilaterally. GASTROINTESTINAL: Abdomen soft, non-tender, nondistended. Hepatic and splenic margins not palpable. MUSCULOSKELETAL: Extremities without clubbing, cyanosis, or edema. No obvious deformities. NEUROLOGICAL: Awake and alert. No obvious cranial nerve deficits. Motor grossly within normal limits. Moving all extremities spontaneously. Normal speech. PSYCHIATRIC: Appropriate mood and affect; insight and judgment normal. A/P Assessment and Plan 76-year-old male with hypertension, hyperlipidemia, arthritis, presents after a syncopal episode with black stools. Symptomatic Anemia secondary to GI Bleed from large ulcerated gastric mass S/P EGD with biopsy, colonoscopy. With large ulcerated Gastric mass possible malignancy Hgb 7.9, on admission, previously 15.9 in 2012. Rectal exam done by ER physician positive for melena, Hemoccult+. -s/p transfusion 2u pRBCs -monitor serial H&H -on IV Protonix 40mg q12h -supportive treatment with IVF hydration, antiemetics prn, pain control prn -consult gastroenterology, ff -S/P EGD with biopsy, colonoscopy. With Gastric mass possible malignancy -Air contrast barium enema -Oncology consult, seen by Dr Bird Differential diagnoses include primary gastric malignancy versus lymphoid malignancy such as diffuse large B-cell lymphoma. -Oral iron replacement therapy for management of symptomatic anemia. -LDH will be ordered because lymphoma is in the differential diagnosis. -Surgical consult -Biopsy results are pending -CT of the abdomen and pelvis reviewed Syncope: suspect secondary to anemia as above in combination with mild dehydration. -giving blood transfusion x2u -continue IVF hydration -monitor for improvement Dehydration, Mild ADRIENNE: Cr 1.27, on admission previously 0.93 in 2012. Improved -give IVF hydration at 75cc/hr -repeat BMP in am Hypertension: chronic, stable -hold patient lisinopril and hctz for now -monitor BP, add antihypertensives as needed DVT Prophylaxis: teds/SCDs; avoid chemoprophylaxis with GI bleed as above DC when able to tolerated food and cleared by consultants. Discussed with the patient, nurse Rosangela Barksdale MD Jun 01, 2017 09:11
--- NOTE | 2017-06-01 10:52 | PQ ---
Physician Query Response Document PATIENT: MARLEE RICHMOND : 1940 ADMIT DATE: 05/30/2017 1:20 PM DISCH DATE: RESPONDING PROVIDER #: [email or web address] QUERY TEXT: Anemia Type Anemia is documented in the Medical Record. Please specify the cause (includes suspected or probable cause) Such as: -- Due to acute blood loss -- Due to chronic blood loss -- Due to iron deficiency -- Due to postoperative blood loss -- Due to chronic disease -- Other, please specify The patient's Clinical Indicators include: syncope and collapse hgb 7.9 hct 24.8 re blood transfusion x 2 rectal bleeding endoscopy w gastric mass per GI source of GI bleed Query created by: Madison Benz on 05/31/2017 10:31 AM RESPONSE TEXT: Anemia 2/2 acute blood loss internal and external hemorrhoids, also might be 2/2 hematologic disorder work up also pending follow up with hematology as well and plan for Capsule endoscopy as OP Electronically signed by: Rosangela Barksdale MD 06/01/2017 10:48 AM
[2017-06-01 12:00] VITALS: BP 160/82; PULSE 80; RESP 18; TEMP 98.5; O2SAT 96
[2017-06-01 13:27] LABS: % SATURATION IRON PROFILE 4.5 % (20-50); IRON (FE) 16 MCG/DL (65-175); TOTAL IRON BINDING CAPACITY 358 MCG/DL (250-450)
[2017-06-01 13:52] LABS: FERRITIN 7 NG/ML (26-388)
[2017-06-01] MEDS ORDERED: PROT40TA PO (15:33)
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
--- NOTE | 2017-06-01 15:34 | HHI.GIFU ---
Subjective Remarks Patient laying in bed comfortably, and platelet with family and friends, deny any GI bleed, tolerated food well, hemoglobin stable, was seen by oncology yesterday Objective Vitals I&O Vital Signs Date Time Temp Pulse Resp B/P (MAP) Pulse Ox O2 Delivery O2 Flow Rate FiO2 06/01/17 12:00 98.5 80 18 160/82 (108) 96 06/01/17 08:00 98.9 69 18 141/70 (93) 97 06/01/17 00:00 97.5 80 20 133/62 (85) 97 05/31/17 20:00 98.5 84 20 133/61 (85) 97 05/31/17 17:36 98.0 80 20 140/8 (52) 96 I/O 05/31/17 05/31/17 05/31/17 06/01/17 06/01/17 06/01/17 07:00 15:00 23:00 07:00 15:00 23:00 Intake Total 800 ml 1500 ml 1060 ml 1240 ml 480 ml Balance 800 ml 1500 ml 1060 ml 1240 ml 480 ml Intake Oral 0 ml 550 ml 400 ml 240 ml 480 ml IV Total 660 ml 1000 ml Packed Cells 800 ml Other 950 ml # Voids 5 5 4 3 3 # Bowel Movements 1 1 Laboratory Laboratory Tests Test 06/01/17 07:35 White Blood Count 5.2 Red Blood Count 4.16 Hemoglobin 9.3 Hematocrit 29.0 Mean Corpuscular Volume 69.6 Mean Corpuscular Hemoglobin 22.4 Mean Corpuscular Hemoglobin Concent 32.2 Red Cell Distribution Width 22.3 Platelet Count 256 Mean Platelet Volume 7.3 Neutrophils (%) (Auto) 68.0 Lymphocytes (%) (Auto) 17.6 Monocytes (%) (Auto) 11.4 Eosinophils (%) (Auto) 2.2 Basophils (%) (Auto) 0.8 Neutrophils # (Auto) 3.6 Lymphocytes # (Auto) 0.9 Monocytes # (Auto) 0.6 Eosinophils # (Auto) 0.1 Basophils # (Auto) 0.0 CBC Comment AUTO DIFF Differential Comment AUTO DIFF CONFIRMED Ovalocytes 1+ Blood Urea Nitrogen 20 Creatinine 0.89 Random Glucose 93 Calcium Level 8.4 Sodium Level 142 Potassium Level 4.1 Chloride Level 108 Carbon Dioxide Level 28.3 Anion Gap 6 Estimat Glomerular Filtration Rate 83 Iron Level 16 Total Iron Binding Capacity 358 Percent Iron Saturation 4.5 Ferritin 7 Vitamin B12 Level 176 Physical Exam HEENT: Pupils round and reactive to light; normocephalic; atraumatic; no jaundice. Throat is clear. NECK: Neck is supple, no JVD, no lymphadenopathy. CHEST: Chest is clear to auscultation and percussion. CARDIAC: Regular rate and rhythm with no murmur gallop or rubs. ABDOMEN: Soft, nondistended, nontender; no hepatosplenomegaly; bowel sounds are present in all four quadrants. EXTREMITIES: No clubbing, cyanosis, or edema. SKIN: Normal; no rash; no jaundice. LEASING PROPERTY MANAGER: No focal deficits; alert and oriented times three. Assessment and Plan Plan Assessment - Melena- Complaining of black, tarry stools x 1 month, increasing in frequency today. Presented after syncopal episode. H/H currently 7.9/24.8. Denies NSAIDs, blood thinners, ETOH, smoking. Has never had EGD. Plan for EGD tomorrow. Pt has 2 U PRBC ordered per attending. - Weight loss- 20 pound weight loss over the past month. Last colonoscopy was approx 3-5 years ago, reports normal exam. Will plan for CT abdomen and pelvis today and colonoscopy tomorrow. 05/31/2018 Patient hemoglobin is stable, no more bleeding, tolerated prep, did not get CT scan yet, had an upper endoscopy and a colonoscopy 06/01/2018 patient had significant anemia with GI bleed, agent has large ulcer in the antrum, CT scan consistent with cancer with possible metastases, was seen by oncology yesterday, no active bleeding, colon is normal IMPRESSION: Gastric mass possible malignancy PLAN: Oncology follow-up as an Surgical consult as an outpatient Await biopsy results Okay to discharge from GI perspective Discussed with Aniya Chavez MD Jun 01, 2017 15:34
[2017-06-01 16:00] VITALS: BP 171/81; PULSE 72; RESP 18; TEMP 98.7; O2SAT 98
--- NOTE | 2017-06-01 17:39 | PD.CAR.PN ---
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 I received to consult about 2 hours ago and came to see the patient yet patient was discharged in the meantime without my knowledge Considering the patient has left the hospital and I can see him I will try to contact the patient and bring him into my office as an outpatient By that time pathology should be back and we should decide on the best course of treatment between surgery and oncology Clearly local control has to be achieved considering the bleeding but the tumor may be beyond the confines of resection for even palliative purposes Thanks J Objective: Vital Signs Date Time Temp Pulse Resp B/P (MAP) Pulse Ox O2 Delivery O2 Flow Rate FiO2 06/01/17 16:00 98.7 72 18 171/81 (111) 98 06/01/17 12:00 98.5 80 18 160/82 (108) 96 06/01/17 08:00 98.9 69 18 141/70 (93) 97 06/01/17 00:00 97.5 80 20 133/62 (85) 97 05/31/17 20:00 98.5 84 20 133/61 (85) 97 Labs: Laboratory Tests Test 06/01/17 07:35 White Blood Count 5.2 TH/MM3 (4.0-11.0) Red Blood Count 4.16 MIL/MM3 (4.50-5.90) Hemoglobin 9.3 GM/DL (13.0-17.0) Hematocrit 29.0 % (39.0-51.0) Mean Corpuscular Volume 69.6 FL (80.0-100.0) Mean Corpuscular Hemoglobin 22.4 PG (27.0-34.0) Mean Corpuscular Hemoglobin Concent 32.2 % (32.0-36.0) Red Cell Distribution Width 22.3 % (11.6-17.2) Platelet Count 256 TH/MM3 (150-450) Mean Platelet Volume 7.3 FL (7.0-11.0) Neutrophils (%) (Auto) 68.0 % (16.0-70.0) Lymphocytes (%) (Auto) 17.6 % (9.0-44.0) Monocytes (%) (Auto) 11.4 % (0.0-8.0) Eosinophils (%) (Auto) 2.2 % (0.0-4.0) Basophils (%) (Auto) 0.8 % (0.0-2.0) Neutrophils # (Auto) 3.6 TH/MM3 (1.8-7.7) Lymphocytes # (Auto) 0.9 TH/MM3 (1.0-4.8) Monocytes # (Auto) 0.6 TH/MM3 (0-0.9) Eosinophils # (Auto) 0.1 TH/MM3 (0-0.4) Basophils # (Auto) 0.0 TH/MM3 (0-0.2) CBC Comment AUTO DIFF Differential Comment AUTO DIFF CONFIRMED Ovalocytes 1+ (NORMAL) Blood Urea Nitrogen 20 MG/DL (7-18) Creatinine 0.89 MG/DL (0.60-1.30) Random Glucose 93 MG/DL (74-106) Calcium Level 8.4 MG/DL (8.5-10.1) Sodium Level 142 MEQ/L (136-145) Potassium Level 4.1 MEQ/L (3.5-5.1) Chloride Level 108 MEQ/L (98-107) Carbon Dioxide Level 28.3 MEQ/L (21.0-32.0) Anion Gap 6 MEQ/L (5-15) Estimat Glomerular Filtration Rate 83 ML/MIN (>89) Iron Level 16 MCG/DL (65-175) Total Iron Binding Capacity 358 MCG/DL (250-450) Percent Iron Saturation 4.5 % (20-50) Ferritin 7 NG/ML (26-388) Vitamin B12 Level 176 PG/ML (193-986) Result Diagram: 06/01/17 0735 06/01/17 0735 Per Gunter MD Jun 01, 2017 17:39
== END 2017-06-01 17:24 | disposition home or self-care (01) | DRG 378 ==
LOC: NEPC 09:48 → NEDH 13:20 → PH3B 15:57
PROVIDERS: ADMIT Hospitalist; ATTEND Hospitalist
PROC: 30233N1 Transfusion of Nonautologous Red Blood Cells into Peripheral Vein, Percutaneous Approach (ICD-10-PCS; principal; 2017-05-30)
PROC: 0DB68ZX Excision of Stomach, Via Natural or Artificial Opening Endoscopic, Diagnostic (ICD-10-PCS; 2017-05-30)
PROC: 0DJD8ZZ Inspection of Lower Intestinal Tract, Via Natural or Artificial Opening Endoscopic (ICD-10-PCS; 2017-05-30)
DX: K25.4 Chronic or unspecified gastric ulcer with hemorrhage (principal); N17.9 Acute kidney failure, unspecified; E86.0 Dehydration; D62 Acute posthemorrhagic anemia; Q43.8 Other specified congenital malformations of intestine; Z68.1 Body mass index [BMI] 19.9 or less, adult; I10 Essential (primary) hypertension; R55 Syncope and collapse; E78.5 Hyperlipidemia, unspecified; M19.90 Unspecified osteoarthritis, unspecified site; R63.4 Abnormal weight loss; M25.562 Pain in left knee; R10.13 Epigastric pain; R59.1 Generalized enlarged lymph nodes; Z87.891 Personal history of nicotine dependence; Z91.81 History of falling
CPT/HCPCS: 36430; 72040; 74176; 74280; 80048; 80076; 82378; 82607; 82728; 82747; 83540; 83550; 83615; 85025; 86300; 86301; 86850; 86900; 86901; 86920; 88305; 88312; 93005; C9113; J1940; J7030; P9016; Q9963

== ENCOUNTER 2017-06-12 06:08 | Day surgery (SDC) | payer OTHER ==
[~2017-06-12] VITALS: Ht 180.3 cm; Wt 63.6 kg
[~2017-06-12 06:08] MED LIST changes: -AMOX875 PO; +LATA0.002 EACH EYE; +LISI-515 PO; -LISI-587 PO; +LOVA40TA PO; -MEDR4PAK3 PO; -MEVA40TA PO; -NAPR-576 PO; +OMEP20TA93 PO; +PROT40TA PO
[2017-06-12 06:43] VITALS: BP 142/87; PULSE 93; RESP 20; TEMP 97.8; O2SAT 99
[2017-06-12] MEDS ORDERED: ceFAZolin 2 GM PREMIX 50 ML - implanted port/tunneled catheter insertion IV SCH (07:00)
[2017-06-12] MEDS ORDERED: VANCOMYCIN 1000 MG/NS 250 ML - implanted port/tunneled catheter IV SCH ×2 (07:00)
[2017-06-12] MEDS ORDERED: POVIDONE IODINE 5% (ANTISEPSIS KIT) 4 APPLICATIONS EACH NARE SCH (07:00)
[2017-06-12] MEDS ORDERED: SODIUM CHLORIDE 0.9% 1000 ML IV SCH (07:00)
[2017-06-12] MEDS ORDERED: CHLORHEXIDINE GLUCONATE 2 % 1 PACK (2 CLOTHS) TOPICAL SCH (07:00)
[2017-06-12] MEDS ORDERED: LISI20TA3 PO (07:07)
[2017-06-12] MEDS ORDERED: FERR200T PO (07:07)
[2017-06-12] MEDS ORDERED: CLAR500T PO (07:07)
[2017-06-12] MEDS ORDERED: AMOX500T PO (07:07)
[2017-06-12 07:42] LABS: INTERNATIONAL NORMALIZED RATIO 1.1 RATIO; PROTHROMBIN TIME - PATIENT 10.9 SEC (9.8-11.6)
[2017-06-12] MEDS ORDERED: MIDAZOLAM HCL 2 MG/2 ML VIAL ONE (07:59)
--- NOTE | 2017-06-12 08:38 | PD.RAD ---
Post Procedure Progress Note Pre Procedure Diagnosis: (1) Gastric mass Post Procedure Diagnosis: (1) Gastric mass Procedure Date: Jun 12, 2017 Supervising Radiologist: Onur Perdomo Proceduralist/Assist: Telly Garcia, RT(R), Nancy Bassett RT(R) Anesthesia: Conscious Sedation Plan of Activity Patient to Unit: ROPU Patient Condition: Good See PACS Report for procedural detail/treatment Onur Perdomo MD Jun 12, 2017 08:38
[2017-06-12 08:50] VITALS: BP 126/59; PULSE 74; RESP 18; TEMP 97.8; O2SAT 98
[2017-06-12 09:05] VITALS: BP 110/58; PULSE 70; RESP 16; O2SAT 98
--- NOTE | 2017-06-12 09:22 | RADRPT ---
EXAM DATE/TIME: 06/12/2017 08:53 [facility] COMPARISON: No previous studies available for comparison. INDICATIONS : Patient presents with gastric cancer in need of port placement. MEDICAL HISTORY : HTN Gastricadenocarcinoma Ulcer SURGICAL HISTORY : EGD ENCOUNTER: Initial ACUITY: 3 months PAIN SCORE: 0/10 FLUORO TIME: 0.3 minutes IMAGE SERIES: 1 SEDATION TIME: 30 minutes ACCESS: Right internal jugular vein SEDATION: 1.) 2 midazolam (Versed) IV 2.) 100 fentanyl (Sublimaze) IV Prophylactic antibiotics were administered with appropriate pre-procedure timing. Vancomycin within 2 hours of procedure, Ancef (or alternative) within 1 hour of procedure. DEVICE: 1. 8 Mongolian single lumen cm Bard Power Port PROCEDURE : 1. Continuous pulse oximetry and EKG monitoring. 2. Intravenous conscious sedation. 3. Ultrasound guidance for venous access. 4. Fluoroscopic guided implantable central venous port placement. The patient was placed supine. The neck was prepped in sterile fashion. Full sterile technique was u sed, including cap, mask, sterile gloves and gown, and a large sterile sheet. Hand hygiene and 2% ch lorhexidine Betadine was utilized per protocol for cutaneous antisepsis with appropriate dry time for site. Sterile gel and sterile probe cover were utilized for ultrasound guidance. The skin and sub cutaneous tissues were infiltrated with local anesthetic solution. Under direct ultrasound guidance, central venous access was accomplished in the targeted vessel. The ultrasound images depicting access guidance were stored and saved to PACS for permanent record. A s ubcutaneous pocket was created using blunt dissection. The port was introduced to the pocket. The c atheter tubing was fed through a subcutaneous tunnel to the venotomy site. The catheter tubing was c ut to a suitable length and then was introduced through a valved Peel-Away sheath and positioned with catheter tubing tip at the cavo-atrial junction level. The pocket incision was closed with subcutic ular Vicryl suture. Steri-Strips were applied. The port was flushed and locked with heparin solutio n per protocol. Sterile dressing was applied to the site. The patient tolerated the procedure well. Conscious sedation was performed with the prescribed dosages and duration as above in the presence of an independent trained radiology nurse to assist in the monitoring of the patient. EKG and oximetry remained stable throughout the procedure. The patient tolerated the procedure well and there were no complications. The patient was sent to post anesthesia recovery in stable condition. CONCLUSION: Uncomplicated ultrasound and fluoroscopic guided implanted central venous port catheter placement as described in detail above. An 8 Mongolian Power port was placed. Onur Perdomo MD on June 12, 2017 at 8:53 Board Certified Radiologist. This report was verified electronically.
[2017-06-12 09:35] VITALS: BP 119/66; PULSE 73; RESP 16; O2SAT 99
[2017-06-12 10:05] VITALS: BP 115/64; PULSE 74; RESP 16; O2SAT 99
== END 2017-06-12 10:52 | disposition home or self-care (01) ==
LOC: HROP 06:08 → HRIP 06:15 → HROP 10:52
PROVIDERS: ATTEND Internal Medicine Hematology & Oncology
DX: Z45.2 Encounter for adjustment and management of vascular access device (principal); C16.9 Malignant neoplasm of stomach, unspecified; I10 Essential (primary) hypertension
CPT/HCPCS: 36561; 76937; 77001; 85610; 85730; 99152; 99153; C1788; J0690; J1642; J2250; J3010; J3370; J7030; J7050

== ENCOUNTER 2017-09-24 13:30 | Inpatient (IN) | payer OTHER, MEDICARE ==
[~2017-09-24] VITALS: Ht 175.3 cm; Wt 67.0 kg
[~2017-09-24 13:30] MED LIST changes: +FERR200T PO; -LISI-515 PO; +LISI20TA3 PO; -PROT40TA PO
[2017-10-03] MEDS ORDERED: CHLORHEXIDINE GLUCONATE 2 % 1 PACK (2 CLOTHS) TOPICAL PRN (09:15)
[2017-10-03] MEDS ORDERED: SODIUM CHLORID 0.9% 500 ML IV PRN (09:15)
[2017-10-03] MEDS ORDERED: POVIDONE IODINE 5% (ANTISEPSIS KIT) 4 APPLICATIONS EACH NARE PRN (09:15)
[2017-10-03] MEDS ORDERED: LACTATED RINGER'S 1000 ML IV PRN (09:15)
[2017-10-03] MEDS ORDERED: METOPROLOL TARTRATE 25 MG TAB PO PRN (09:15)
[2017-10-03 09:45] LABS: AUTOMATED NEUTROPHIL # 4.7 TH/MM3 (1.8-7.7); BASOPHIL # 0.1 TH/MM3 (0-0.2); BASOPHIL % 0.9 % (0.0-2.0); EOSINOPHIL # 0.1 TH/MM3 (0-0.4); EOSINOPHIL % 1.6 % (0.0-4.0); HEMATOCRIT 40.7 % (39.0-51.0); HEMOGLOBIN 13.9 GM/DL (13.0-17.0); LYMPHOCYTE # 1.3 TH/MM3 (1.0-4.8); MEAN CELL VOLUME 84.1 FL (80.0-100.0); MEAN CORPUSCULAR HEMOGLOBIN 28.8 PG (27.0-34.0); MEAN CORPUSCULAR HGB CONC 34.2 % (32.0-36.0); MEAN PLATELET VOLUME 8.3 FL (7.0-11.0); MONO % 9.9 % (0.0-8.0); MONOCYTE # 0.7 TH/MM3 (0-0.9); NEUT % 68.6 % (16.0-70.0); PLATELET COUNT 173 TH/MM3 (150-450); RED BLOOD COUNT 4.83 MIL/MM3 (4.50-5.90); RED CELL DISTRIBUTION WIDTH 18.2 % (11.6-17.2); WHITE BLOOD COUNT 6.8 TH/MM3 (4.0-11.0)
[2017-10-03 09:56] LABS: BICARBONATE 27.5 MEQ/L (21.0-32.0); CALCIUM 9.8 MG/DL (8.5-10.1); CREATININE 1.19 MG/DL (0.60-1.30)
[2017-10-03] MEDS ORDERED: ACETAMINOPHEN 1000 MG/100 ML 100 ML IV ONE (09:59)
[2017-10-03] MEDS ORDERED: KETAMINE HCL 500 MG/10 ML VIAL ONE (09:59)
[2017-10-03] MEDS ORDERED: DEXMEDETOMIDINE HCL 200 MCG/2 ML VIAL ONE (10:04)
[2017-10-03] MEDS ORDERED: DEXAMETHASONE SOD PHOS PF 10 MG/ML VIAL ONE (10:30)
[2017-10-03] MEDS ORDERED: ROPIVACAINE 0.5% PF INJ 30 ML VIAL ONE (10:30)
[2017-10-03 10:50] LABS: OVALOCYTES 1+ (NORMAL)
[2017-10-03] MEDS: ceFAZolin 2 GM/DEX PREMIX 50 ML IV SCH ×2 (11:25→13:04)
[2017-10-03] MEDS ORDERED: PHENYLEPH/NS 1000 MCG/10 ML SYR IV ONE (12:00)
[2017-10-03] MEDS ORDERED: GLYCOPYRROLATE 1 MG/5 ML SYRINGE IV PUSH ONE (12:00)
[2017-10-03] MEDS ORDERED: DEXAMETHASONE SOD PHOS 4 MG/ML VIAL IV ONE (12:00)
[2017-10-03] MEDS ORDERED: ROCURONIUM INJ 50 MG/5 ML SYRINGE IV PUSH ONE (12:00)
[2017-10-03] MEDS ORDERED: LIDOCAINE HCL 1% PF 5 ML SYRINGE OTHER ONE (12:00)
[2017-10-03] MEDS ORDERED: LACTATED RINGER'S 1000 ML INJ 3,000 ML IV ONE (12:00)
[2017-10-03] MEDS ORDERED: PHENYLEPHRINE HCL 10 MG/ML VIAL IV ONE (12:00)
[2017-10-03] MEDS ORDERED: ONDANSETRON HCL 4 MG/2 ML VIAL IV ONE (12:00)
[2017-10-03] MEDS ORDERED: SODIUM CHLORIDE 0.9% 10 ML VIAL IV FLUSH ONE (12:00)
[2017-10-03] MEDS ORDERED: NEOSTIGMINE 5 MG/5 ML SYRINGE IV PUSH ONE (12:00)
[2017-10-03] MEDS ORDERED: ePHEDrine/NS 25 MG/5 ML SYRINGE IV ONE (12:00)
[2017-10-03] MEDS ORDERED: PROPOFOL 200 MG/20 ML AMP IV ONE (12:00)
[2017-10-03] MEDS ORDERED: metroNIDAZOLE 500 MG INJ 100 ML IV ONE (12:20)
[2017-10-03] MEDS ORDERED: FLUCONAZOLE 400 MG PREMIX BAG 200 ML ONE (12:20)
[2017-10-03] MEDS ORDERED: Post-op Orders (for Pharmacy) XX ONE (15:07)
[2017-10-03] MEDS ORDERED: *morphine SULFATE 8 MG/ML PERIprocedure ONLY ONE ×2 (15:10→15:22)
[2017-10-03] MEDS: PCA - TOTAL MG MORPHINE DELIVERED PER SHIFT SCH ×2 (15:30→22:00)
[2017-10-03] MEDS ORDERED: NALOXONE HCL 0.4 MG/ML AMP IV PUSH PRN ×2 (15:30)
[2017-10-03] MEDS ORDERED: diphenhydrAMINE HCL 50 MG/ML VIAL IV PUSH PRN (15:30)
[2017-10-03] MEDS ORDERED: SODIUM CHLORIDE 0.9% FLUSH 10 ML FLUSH IV FLUSH PRN (15:30)
[2017-10-03] MEDS ORDERED: BENZOCAINE 20% ORAL SPR 60 ML CAN MT PRN (15:30)
[2017-10-03] MEDS ORDERED: DO NOT ADM ANY ANTICOAGULANT DRUGS PRN (15:45)
[2017-10-03] MEDS ORDERED: *morphine SULFATE 4 MG/ML PERIprocedure ONLY ONE (15:54)
[2017-10-03] MEDS ORDERED: ONDANSETRON ODT 4 MG TAB PO PRN (16:00)
[2017-10-03] MEDS: LACTATED RINGER'S 1000 ML INJ 1,000 ML IV SCH ×2 (16:05→21:55)
[2017-10-03] MEDS: MORPHINE SULFATE 30 MG/30 ML PCA IV SCH (16:30)
--- NOTE | 2017-10-03 16:36 | MP ---
cc: Alton Lucas MD DATE OF OPERATION: 10/03/2017 DATE OF PROCEDURE: 10/03/2017 PREOPERATIVE DIAGNOSIS: Gastric adenocarcinoma, status post neoadjuvant chemotherapy. POSTOPERATIVE DIAGNOSIS: Gastric adenocarcinoma, status post neoadjuvant chemotherapy. PROCEDURE PERFORMED: 1. Open subtotal gastrectomy (palliative gastrectomy) with en bloc resection of the transverse colon mesentery with Wil-en-Y reconstruction. 2. Open jejunostomy tube placement. 3. Incisional liver biopsy. ATTENDING SURGEON: Alton Lucas MD POLISH COMPOUNDER: Staff. ANESTHESIA: General, regional tap block. BLOOD LOSS: 150 mL. COMPLICATIONS: None. FINDINGS: 1. A very large bulky locally advanced tumor involving the greater curve of the stomach nearly obstructing at the level of the incisura, with extensive involvement in the transverse mesocolon but with sparing of the middle colic artery. 2. Left lobe of the liver metastasis. 3. Multiple omental nodules consistent with peritoneal metastasis. 4. Multiple bulky D1 and D2 lymph nodes consistent with lymph node positive locally advanced disease. 5. No carcinomatosis. INDICATIONS FOR PROCEDURE: The patient is a 77-year-old male who was recently diagnosed with gastric adenocarcinoma. The patient had no evidence of metastatic disease on staging scans. The patient underwent neoadjuvant chemotherapy for planned perioperative chemotherapy for potential curative resection. The risks, benefits and alternatives to subtotal versus total gastrectomy were discussed with the patient and the family in detail prior to the procedure and the patient agreed to undergo the procedure. DESCRIPTION OF PROCEDURE: The patient was taken to the operating room and underwent a regional tap block after anesthesia per anesthesia documentation. We then shaved, prepped and draped the abdomen in a sterile fashion. Timeout was performed. Abdomen was entered through an upper midline incision with a 10 blade scalpel. Bovie electrocautery was used to dissect through the subcutaneous tissue and open the midline fascia for the full length of the incision. We placed an Ino extra large wound retractor into the wound. We placed a Bookwalter retractor to gain better exposure. At this point in time, I explored the abdomen. There was a large bulky locally advanced tumor involving the transverse mesocolon as well as omental nodules as far as oligometastasis in the omentum as well as a 1.5 cm size metastasis on the underside of the left lobe of the liver. At this point in time, after careful inspection of this tumor, I could tell that this was basically involving almost the complete circumferential lumen around the incisura and to the prepyloric area and looked like an impending obstruction. The patient was also having significant symptoms from the tumor. I felt that although this patient was not curable, based on his extensive disease, that a palliative gastrectomy would be indicated due to impending obstruction. I did also discuss this with the patient and the family prior to surgery as this scenario would be possible with palliative gastrectomy being a potential benefit to the patient. I did proceed with palliative gastrectomy. I did remove the omentum off the transverse colon using the Enseal device. We followed this down to the root of the mesentery and exposed the transverse mesocolon. We dissected around the pylorus 360 degrees using the right angle retractor. We divided this with a green load on the Los Alvarez stapler. We continued our dissection proximally towards the stomach and we were able to identify the middle colic artery which was very close to, but not involved in the exophytic portion of the tumor of the greater curve. We dissected this off of the tumor gently with a right angle and this again was not involved with tumor and was completely intact with a good pulse. We continued our dissection and using the Enseal to take the remaining involved portion of the mesocolon. There was approximately 5 cm of transverse mesocolon that was involved in the tumor and this again was resected with the resection of the middle colic artery. The colon remained uninvolved by tumor and pink and viable after this resection. We continued our dissection, took down about half of the short gastrics up to the spleen. There was a small amount of oozing from a small capsular tear just a few millimeters. This was stopped quite easily with some Surgicel SNoW. We were then able to use multiple green loads on the [place] Alvarez stapler to divide the stomach at the fundus down to above the level of the incisura. This freed the stomach up from the patient with the exception of some branches of the left gastric artery. We did place a white load on the [place] Alvarez stapler to divide these branches. We ensured we had a good pulse in the hepatic artery. We passed off the specimen as subtotal gastrectomy. All staple lines were intact and pink and viable. We did take a scalpel and do a wedge incisional biopsy type of the deposit in the left lobe of the liver to document stage IV disease. We had excellent hemostasis with Bovie cautery after this biopsy. We at this point in time then closed the defect in our transverse mesentery with a running 3-0 Vicryl suture. We then turned our attention towards reconstruction. We performed an antecolic retrogastric Wil-en-Y reconstruction. We divided the jejunum approximately 40 cm past the ligament of Treitz and brought the Wil limb, again antecolic retrogastric and performed a [id number]-pa-vhhp anastomosis with our gastric pouch and the small bowel using the green load on the Los Alvarez stapler. The staple defect was closed with interrupted 3-0 silk sutures. We then placed an NG tube tip down to the anastomosis and secured this in position. We then performed our JJ anastomosis using a blue load on the Los Alvarez stapler. Staple line defect was closed with a second blue load on the [place] Alvarez stapler. Staple lines again were intact and pink and viable with no leak and no bleeding. The mesenteric defect was closed with interrupted 3-0 silk suture. We oversewed the crotch staple lines of the gastrojejunostomy as well as the jejunojejunostomy. We then placed a J-tube in Lindsay fashion approximately 30 cm past our JJ using a 14-Belizean MISSY jejunostomy tube. This stands up to the abdominal wall with 3-0 silks as well as a 3-0 silk pursestring around the base of the tube. This was flushed and 2.5 mL of water was placed in the balloon. This was sutured to the skin with nylon sutures as well. We then placed a 19-Belizean round Geoff drain through a separate stab incision in the right upper quadrant and laid this up in the epigastric area near our gastrojejunostomy anastomosis as well as duodenal stump. We irrigated out the abdomen with 2 liters of sterile saline until all suctioning was clear. We turned our attention towards closure. We closed the midline fascia with a single #1 looped PDS suture. We closed the skin with dora and a MOHSEN dressing was applied. A drain was placed to bulb suction and J-tube was placed to gravity drain. The patient was at this point in time discontinued from the anesthesia and taken the PACU in stable condition. The patient tolerated the procedure well. There were no apparent complications. All counts were correct. I was present and performed the entire procedure. MD TIN Skelton/MITCHELL , 03:48 PM , 04:35 PM
[2017-10-03] MEDS: ACETAMINOPHEN 1000 MG/100 ML 100 ML IV SCH (18:05)
[2017-10-03 18:30] VITALS: BP 147/68; PULSE 100; PULSE 93; RESP 16; TEMP 99; O2SAT 99
[2017-10-03] MEDS: SODIUM CHLORIDE 0.9% FLUSH 10 ML FLUSH IV FLUSH SCH (21:00)
--- NOTE | 2017-10-03 21:17 | PD.CONS ---
[facility] Service Critical Care Medicine Consult Requested By Dr. Balbuena Reason for Consult perioperative management of medical comorbidities Primary Care Physician Varun Quiroz Do, MD History of Present Illness This is a 77-year-old male with a history of gastric cancer who has undergone neoadjuvant chemotherapy and presents for planned total gastrectomy. Intraoperative course was complicated by the discovery of widely metastatic disease within the abdomen. The total gastrectomy with Wil-en-Y gastrojejunostomy and jejunojejunostomy was completed without complication. The patient arrived to PACU in stable and exudative condition. I evaluated the patient in the PACU. The patient is arousing from anesthesia and a full history and review systems is unobtainable. A brief review of systems is negative for throat pain, headache, nausea, vomiting. He does endorse mild tolerable abdominal pain. He received 3 L of crystalloid intraoperatively. Urine output was adequate. Critical care medicine has been consulted to evaluate and manage his medical comorbidities as the setting of a high risk oncologic surgical procedure. Review of Systems ROS Limitations: Clinical Condition, Altered Mental Status Ears, nose, mouth, throat: DENIES: Throat pain Respiratory: DENIES: Cough, Shortness of breath Cardiovascular: DENIES: Chest pain Gastrointestinal: DENIES: Nausea, Vomiting ROS Arousing from anesthesia Past Family Social History Allergies: Coded Allergies: No Known Allergies (Unverified Allergy, Unknown, 06/12/17) Past Medical History Hypertension Dyslipidemia Gastric cancer Anemia of unknown etiology Osteoarthritis Past Surgical History Port placement Reported Medications Omeprazole 20 Mg Tab 20 Mg PO DAILY Lovastatin 40 Mg Tab 40 Mg PO DAILY Lisinopril-Hctz 20-25 Mg Tab 1 Tab PO DAILY Feosol (Ferrous Sulfate) 325 Mg (65 Mg Iron) Tab 1 Tab PO BID Latanoprost Opth Drops (Latanoprost) 0.005% Drops 1 Drop EACH EYE HS Refrigerate until opened. Active Ordered Medications See MAR Family History Reviewed and found to be noncontributory to his acute illness Social History 1 pack per day smoker 5 years, but quit 45 years ago. Physical Exam Vital Signs Vital Signs Date Time Temp Pulse Resp B/P (MAP) Pulse Ox O2 Delivery O2 Flow Rate FiO2 10/03/17 20:20 16 10/03/17 18:35 20 10/03/17 18:30 98 Nasal Cannula 2.00 10/03/17 18:30 99.0 93 16 147/68 (94) 99 10/03/17 18:30 100 10/03/17 18:00 92 16 127/64 (85) 100 Nasal Cannula 2 10/03/17 17:00 93 15 124/62 (82) 100 Nasal Cannula 2 10/03/17 16:30 15 10/03/17 16:15 99.1 93 18 119/57 (77) 100 Nasal Cannula 2 10/03/17 16:00 92 16 120/59 (79) 100 Nasal Cannula 3 10/03/17 15:45 89 17 121/61 (81) 100 Nasal Cannula 3 10/03/17 15:30 91 16 125/59 (81) 100 Nasal Cannula 3 10/03/17 15:15 86 22 131/58 (82) 100 Nasal Cannula 3 10/03/17 15:04 99.2 93 16 124/74 (91) 100 Simple Mask 6 10/03/17 09:37 98.3 92 16 163/92 (115) 100 Physical Exam GENERAL: This is a elderly male, lying in bed, arousing from anesthesia HEENT: Normocephalic. Atraumatic. Pupils equal, round, reactive, conjugate. Mucous membranes are moist NECK: Trachea is midline. There is no JVD. There is a left subclavian central venous catheter with its dressing intact, site is clean and dry. CHEST: Equal chest rise. Nasal cannula oxygen. Unlabored. CARDIOVASCULAR: Normal rate, regular rhythm. Sinus by telemetry. ABDOMEN: There is a midline abdominal incision with a dressing which is clean and dry. There is a JOSE M drain that exits the abdomen which has a minimal amount of sanguinous output. There is a J-tube which is to gravity without significant output. The abdomen is soft, mildly and appropriately tender to palpation, nondistended. No guarding or rebound. MUSCULOSKELETAL: Pulses 2+. No peripheral edema. NEUROLOGICAL: RASS -2. Arousing from anesthesia. Will awaken follow commands. No focal deficits. Laboratory Laboratory Tests Test 10/03/17 09:25 White Blood Count 6.8 Red Blood Count 4.83 Hemoglobin 13.9 Hematocrit 40.7 Mean Corpuscular Volume 84.1 Mean Corpuscular Hemoglobin 28.8 Mean Corpuscular Hemoglobin Concent 34.2 Red Cell Distribution Width 18.2 Platelet Count 173 Mean Platelet Volume 8.3 Neutrophils (%) (Auto) 68.6 Lymphocytes (%) (Auto) 19.0 Monocytes (%) (Auto) 9.9 Eosinophils (%) (Auto) 1.6 Basophils (%) (Auto) 0.9 Neutrophils # (Auto) 4.7 Lymphocytes # (Auto) 1.3 Monocytes # (Auto) 0.7 Eosinophils # (Auto) 0.1 Basophils # (Auto) 0.1 CBC Comment AUTO DIFF Differential Comment AUTO DIFF CONFIRMED Ovalocytes 1+ Blood Urea Nitrogen 16 Creatinine 1.19 Random Glucose 93 Calcium Level 9.8 Sodium Level 140 Potassium Level 3.5 Chloride Level 101 Carbon Dioxide Level 27.5 Anion Gap 12 Estimat Glomerular Filtration Rate 59 Result Diagram: 10/03/1725 10/03/1725 Assessment and Plan Assessment and Plan Assessment: 77-year-old male postop day 0 status post laparotomy with total gastrectomy and Wil-en-Y gastrojejunostomy, jejunojejunostomy. Admit to ICU. Close monitoring. Maintenance fluids. Pain control per surgeon. High risk given age and comorbidities. We will continue to follow along. s/p total gastrectomy and Wil-en-Y gastrojejunostomy, jejunojejunostomy 10/03 - mivf - pain control per surgeon - NPO - await ROBF - J tube to gravity HTN - hold antihypertensives currently - will add back as needed Hyperlipidemia - hold statin given NPO. will need to restart this as soon as we begin to use enteral access Anemia, unknown cause, most likely chronic disease superimposed on iron deficiency. - does not meet transfusion triggers at this time - daily cbc daily [facility] ICU electrolyte protocol SCDs, pharmacologic dvt prophylaxis when cleared by surgery Admit to ICU. Critical care medicine will follow along. Onofre Alcala MD October 03, 2017 21:17
[2017-10-03 21:30] VITALS: BP 130/63; PULSE 90; RESP 17; TEMP 98.8; O2SAT 99
[2017-10-03] MEDS: metroNIDAZOLE 500 MG INJ 100 ML IV SCH (21:50)
[2017-10-03 22:00] VITALS: PULSE 88
[2017-10-04] VITALS (10 sets, daily range): BP systolic 116–150; BP diastolic 58–67; PULSE 83–100; RESP 15–23; TEMP 98.9–99.7; O2SAT 96–100
[2017-10-04 04:08] LABS: AUTOMATED NEUTROPHIL # 9.6 TH/MM3 (1.8-7.7); BASOPHIL % 0.1 % (0.0-2.0); HEMATOCRIT 34.4 % (39.0-51.0); LYMPH % 3.4 % (9.0-44.0); LYMPHOCYTE # 0.4 TH/MM3 (1.0-4.8); MEAN CELL VOLUME 83.6 FL (80.0-100.0); MEAN CORPUSCULAR HEMOGLOBIN 29.3 PG (27.0-34.0); MEAN PLATELET VOLUME 7.4 FL (7.0-11.0); MONO % 4.9 % (0.0-8.0); MONOCYTE # 0.5 TH/MM3 (0-0.9); NEUT % 91.6 % (16.0-70.0); PLATELET COUNT 140 TH/MM3 (150-450); RED BLOOD COUNT 4.11 MIL/MM3 (4.50-5.90); RED CELL DISTRIBUTION WIDTH 18.4 % (11.6-17.2); WHITE BLOOD COUNT 10.4 TH/MM3 (4.0-11.0)
[2017-10-04 04:35] LABS: BICARBONATE 26.1 MEQ/L (21.0-32.0); CALCIUM 8.6 MG/DL (8.5-10.1); CREATININE 1.17 MG/DL (0.60-1.30)
[2017-10-04] MEDS: metroNIDAZOLE 500 MG INJ 100 ML IV SCH (04:58)
[2017-10-04] MEDS: ACETAMINOPHEN 1000 MG/100 ML 100 ML IV SCH ×3 (05:00→18:40)
[2017-10-04] MEDS: PCA - TOTAL MG MORPHINE DELIVERED PER SHIFT SCH ×3 (06:00→22:00)
[2017-10-04 08:24] LABS: BANDS 13 % (0-6); LYMPHOCYTES 4 % (9-44); MONOCYTES 5 % (0-8); NEUTROPHIL # MANUAL DIFF 9.5 TH/MM3 (1.8-7.7); OVALOCYTES 1+ (NORMAL); POLYS (SEG NEUTROPHILS) 78 % (16-70)
[2017-10-04] MEDS: SODIUM CHLORIDE 0.9% FLUSH 10 ML FLUSH IV FLUSH SCH ×2 (09:00→21:00)
--- NOTE | 2017-10-04 09:47 | HHI.CCPN ---
Subjective Remarks/Hospital Course Hospital Course: This is a 77-year-old male with a history of gastric cancer who has undergone neoadjuvant chemotherapy and presents for planned total gastrectomy. Intraoperative course was complicated by the discovery of widely metastatic disease within the abdomen. The total gastrectomy with Wil-en-Y gastrojejunostomy and jejunojejunostomy was completed without complication. The patient arrived to PACU in stable and exudative condition. I evaluated the patient in the PACU. The patient is arousing from anesthesia and a full history and review systems is unobtainable. A brief review of systems is negative for throat pain, headache, nausea, vomiting. He does endorse mild tolerable abdominal pain. He received 3 L of crystalloid intraoperatively. Urine output was adequate. Critical care medicine has been consulted to evaluate and manage his medical comorbidities as the setting of a high risk oncologic surgical procedure. Subjective: 10/04: denies complaints. states pain is adequately controlled. NPO. no bowel function yet. ROS negative. Objective Vital Signs Date Time Temp Pulse Resp B/P (MAP) Pulse Ox O2 Delivery O2 Flow Rate FiO2 10/04/17 08:33 98 21 10/04/17 06:00 92 10/04/17 06:00 20 10/04/17 04:00 99.2 116/62 (80) 10/03/17 21:30 Nasal Cannula 2.00 Intake and Output 10/04/17 10/04/17 10/05/17 08:00 16:00 00:00 Intake Total 0 ml Output Total 895 ml Balance -895 ml Result Diagram: 10/04/17 0259 10/04/17 0259 Objective Remarks GENERAL: This is a elderly male, lying in bed, no acute distress. HEENT: Normocephalic. Atraumatic. Pupils equal, round, reactive, conjugate. Mucous membranes are moist NECK: Trachea is midline. There is no JVD. There is a left subclavian central venous catheter with its dressing intact, site is clean and dry. CHEST: Equal chest rise. Nasal cannula oxygen. Unlabored. CARDIOVASCULAR: Normal rate, regular rhythm. Sinus by telemetry. ABDOMEN: There is a midline abdominal incision with a dressing which is clean and dry. There is a JOSE M drain that exits the abdomen which has a minimal amount of serosanguineous output. There is a J-tube which is to gravity without significant output. The abdomen is soft, mildly and appropriately tender to palpation, nondistended. No guarding or rebound. MUSCULOSKELETAL: Pulses 2+. No peripheral edema. NEUROLOGICAL: RASS 0. no focal deficits. follows commands. A/P Assessment and Plan Assessment: 77-year-old male postop day 1 status post laparotomy with total gastrectomy and Wil-en-Y gastrojejunostomy, jejunojejunostomy. Maintenance fluids. Pain control per surgeon. discuss with surgeon: stable for transfer out of ICU. CCM will sign off. s/p total gastrectomy and Wil-en-Y gastrojejunostomy, jejunojejunostomy 10/03 - mivf - pain control per surgeon - NPO - await ROBF - J tube to gravity HTN - hold antihypertensives currently - will add back as needed Hyperlipidemia - hold statin given NPO. will need to restart this as soon as we begin to use enteral access Anemia, unknown cause, most likely chronic disease superimposed on iron deficiency. - does not meet transfusion triggers at this time - daily cbc daily [facility] ICU electrolyte protocol SCDs, pharmacologic dvt prophylaxis when cleared by surgery Onofre Alcala MD October 04, 2017 09:47
[2017-10-04] MEDS: LACTATED RINGER'S 1000 ML INJ 1,000 ML IV SCH ×2 (12:30→21:25)
[2017-10-04] MEDS: MORPHINE SULFATE 30 MG/30 ML PCA IV SCH (12:31)
[2017-10-04] MEDS: ENOXAPARIN SODIUM 40 MG/0.4 ML SYRINGE SQ SCH (14:00)
--- NOTE | 2017-10-04 16:02 | HHI.PR ---
Subjective Subjective Notes feels well, pain controlled Objective Vitals/I&O Vital Signs Date Time Temp Pulse Resp B/P (MAP) Pulse Ox O2 Delivery O2 Flow Rate FiO2 10/04/17 13:47 18 10/04/17 08:33 98 21 10/04/17 06:00 92 10/04/17 04:00 99.2 116/62 (80) 10/03/17 21:30 Nasal Cannula 2.00 Labs Laboratory Tests Test 10/03/17 21:49 10/04/17 02:59 Nasal Screen MRSA (PCR) MRSA NOT DETECTED White Blood Count 10.4 Red Blood Count 4.11 Hemoglobin 12.0 Hematocrit 34.4 Mean Corpuscular Volume 83.6 Mean Corpuscular Hemoglobin 29.3 Mean Corpuscular Hemoglobin Concent 35.0 Red Cell Distribution Width 18.4 Platelet Count 140 Mean Platelet Volume 7.4 Neutrophils (%) (Auto) 91.6 Lymphocytes (%) (Auto) 3.4 Monocytes (%) (Auto) 4.9 Eosinophils (%) (Auto) 0.0 Basophils (%) (Auto) 0.1 Neutrophils # (Auto) 9.6 Lymphocytes # (Auto) 0.4 Monocytes # (Auto) 0.5 Eosinophils # (Auto) 0.0 Basophils # (Auto) 0.0 CBC Comment AUTO DIFF Differential Total Cells Counted 100 Neutrophils % (Manual) 78 Band Neutrophils % 13 Lymphocytes % 4 Monocytes % 5 Neutrophils # (Manual) 9.5 Differential Comment FINAL DIFF MANUAL Platelet Estimate LOW Platelet Morphology Comment NORMAL Ovalocytes 1+ Blood Urea Nitrogen 19 Creatinine 1.17 Random Glucose 165 Calcium Level 8.6 Sodium Level 139 Potassium Level 3.8 Chloride Level 103 Carbon Dioxide Level 26.1 Anion Gap 10 Estimat Glomerular Filtration Rate 60 Cardiovascular: Regular Lungs: Clear Abdomen: Non-distended, Post-op tenderness Extremities: No edema A/P Assessment and Plan 77yo male s/p subtotal gastrectomy, stable. - stable postop, appreciate production support consultant help - pain ok - keep NG, await bowel function - d/w patient, has stage IV disease (small volume) Alton Lucas MD October 04, 2017 16:02
[2017-10-05] VITALS (7 sets, daily range): BP systolic 118–178; BP diastolic 60–82; PULSE 85–103; RESP 16–18; TEMP 98.2–99.4; O2SAT 92–96
[2017-10-05] MEDS: MORPHINE SULFATE 30 MG/30 ML PCA IV SCH ×2 (00:11→15:34)
[2017-10-05] MEDS: ACETAMINOPHEN 1000 MG/100 ML 100 ML IV SCH ×3 (00:12→12:49)
[2017-10-05] MEDS: PCA - TOTAL MG MORPHINE DELIVERED PER SHIFT SCH ×3 (06:00→20:01)
[2017-10-05] MEDS: LACTATED RINGER'S 1000 ML INJ 1,000 ML IV SCH ×2 (07:25→17:11)
[2017-10-05] MEDS: SODIUM CHLORIDE 0.9% FLUSH 10 ML FLUSH IV FLUSH SCH ×2 (08:49→20:02)
[2017-10-05] MEDS ORDERED: PNEUMOCOCCAL POLYVALENT INJ 25 MCG/0.5 ML SYR IM ONE (09:00)
--- NOTE | 2017-10-05 12:21 | HHI.PR ---
Subjective Subjective Notes feels well, no new c/o, pain better, no BM Objective Vitals/I&O Vital Signs Date Time Temp Pulse Resp B/P (MAP) Pulse Ox O2 Delivery O2 Flow Rate FiO2 10/05/17 08:00 98.5 85 16 141/63 (89) 95 10/04/17 08:33 21 10/04/17 07:00 Nasal Cannula 2.00 Cardiovascular: Regular Lungs: Clear Abdomen: Non-distended, Post-op tenderness Extremities: No edema, Perfused Narrative Exam JOSE M SS A/P Assessment and Plan 77yo male POD#2 subtotal gastrectomy, stable. - stable postop, OOB, pain controlled - keep NG to decompress gastro-J anastomosis, await bowel function Alton Lucas MD October 05, 2017 12:21
[2017-10-05] MEDS: ENOXAPARIN SODIUM 40 MG/0.4 ML SYRINGE SQ SCH (14:57)
[2017-10-06] VITALS: BP 149/73; PULSE 88; RESP 18; TEMP 99.9; O2SAT 95
[2017-10-06] MEDS: LACTATED RINGER'S 1000 ML INJ 1,000 ML IV SCH ×3 (05:27→23:25)
[2017-10-06] MEDS: PCA - TOTAL MG MORPHINE DELIVERED PER SHIFT SCH ×3 (05:27→20:31)
[2017-10-06 08:00] VITALS: BP 126/82; PULSE 95; RESP 18; TEMP 99.8; O2SAT 95
--- NOTE | 2017-10-06 08:22 | HHI.PR ---
Subjective Subjective Notes no issues, +flatus, oob Objective Vitals/I&O Vital Signs Date Time Temp Pulse Resp B/P (MAP) Pulse Ox O2 Delivery O2 Flow Rate FiO2 10/06/17 05:27 20 10/06/17 00:00 99.9 88 149/73 (98) 95 10/05/17 20:45 Room Air 10/05/17 11:53 21 10/04/17 07:00 2.00 Abdomen: Non-tender (incisional tenderness, epifanio sxn serosang, j tube c/d/i papo in place) A/P Assessment and Plan 77yo male POD#3 subtotal gastrectomy, stable. 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
[2017-10-06] MEDS: SODIUM CHLORIDE 0.9% FLUSH 10 ML FLUSH IV FLUSH SCH ×2 (09:00→20:31)
[2017-10-06] MEDS: MORPHINE SULFATE 30 MG/30 ML PCA IV SCH ×2 (09:02→23:30)
[2017-10-06 12:00] VITALS: BP 147/81; PULSE 82; RESP 18; TEMP 100.2; O2SAT 96
[2017-10-06] MEDS: ENOXAPARIN SODIUM 40 MG/0.4 ML SYRINGE SQ SCH (12:04)
[2017-10-06 16:00] VITALS: BP 156/75; PULSE 101; RESP 18; TEMP 99.6; O2SAT 95
[2017-10-06 20:00] VITALS: BP 164/79; PULSE 99; RESP 18; TEMP 100.9; O2SAT 96
[2017-10-07] VITALS: BP 139/71; PULSE 91; RESP 18; TEMP 99.7; O2SAT 96
[2017-10-07] MEDS: PCA - TOTAL MG MORPHINE DELIVERED PER SHIFT SCH ×3 (05:18→21:06)
[2017-10-07] MEDS: SODIUM CHLORIDE 0.9% FLUSH 10 ML FLUSH IV FLUSH SCH ×2 (06:58→21:05)
[2017-10-07 08:00] VITALS: BP 147/66; PULSE 91; RESP 17; TEMP 98.7; O2SAT 96
[2017-10-07] MEDS: LACTATED RINGER'S 1000 ML INJ 1,000 ML IV SCH ×2 (11:05→21:05)
[2017-10-07 12:00] VITALS: BP 153/67; PULSE 90; RESP 17; TEMP 99.1; O2SAT 96
[2017-10-07] MEDS: ENOXAPARIN SODIUM 40 MG/0.4 ML SYRINGE SQ SCH (14:03)
--- NOTE | 2017-10-07 14:45 | HHI.PR ---
Subjective Subjective Notes Doing well No complains except NGT Objective Vitals/I&O Vital Signs Date Time Temp Pulse Resp B/P (MAP) Pulse Ox O2 Delivery O2 Flow Rate FiO2 10/07/17 12:00 99.1 90 17 153/67 (95) 96 10/05/17 20:45 Room Air 10/05/17 11:53 21 10/04/17 07:00 2.00 Cardiovascular: Regular Lungs: Clear Abdomen: Other (PCIO in place with molderate dried drainage; JOSE M SS drainage ) Extremities: No edema A/P Assessment and Plan 77 year old male POD4 subtotal gastrectomy - -Low grade fever overnight; will check labs today -NGT to LIWS; may consider clamping -Will review labs once available -CORPORATE TRAVEL MANAGER for pain -Lovenox -CORPORATE TRAVEL MANAGER for pain control -OOB -IS Attending Statement The exam, history, and the medical decision-making described in the above note were completed with the assistance of the mid-level provider. I reviewed and agree with the findings presented. I attest that I had a [id number] encounter with the patient on the same day, and personally performed and documented my assessment and findings in the medical record. stable postop, no signs of complications await bowel function increase tube feeds via j-tube slowly OOB with PT Tequila GordonP/Stroke Belt Sander Operator SELLING UNDERWRITER October 07, 2017 14:45 Alton Lucas MD October 09, 2017 12:17
[2017-10-07 15:46] LABS: AUTOMATED NEUTROPHIL # 4.8 TH/MM3 (1.8-7.7); BASOPHIL % 0.6 % (0.0-2.0); EOSINOPHIL # 0.1 TH/MM3 (0-0.4); EOSINOPHIL % 1.3 % (0.0-4.0); HEMATOCRIT 34.9 % (39.0-51.0); LYMPH % 8.8 % (9.0-44.0); LYMPHOCYTE # 0.5 TH/MM3 (1.0-4.8); MEAN CELL VOLUME 84.1 FL (80.0-100.0); MEAN CORPUSCULAR HEMOGLOBIN 28.9 PG (27.0-34.0); MEAN CORPUSCULAR HGB CONC 34.4 % (32.0-36.0); MEAN PLATELET VOLUME 7.1 FL (7.0-11.0); MONOCYTE # 0.7 TH/MM3 (0-0.9); NEUT % 78.3 % (16.0-70.0); PLATELET COUNT 155 TH/MM3 (150-450); RED BLOOD COUNT 4.15 MIL/MM3 (4.50-5.90); RED CELL DISTRIBUTION WIDTH 16.7 % (11.6-17.2); WHITE BLOOD COUNT 6.1 TH/MM3 (4.0-11.0)
[2017-10-07 16:00] VITALS: BP 133/62; PULSE 96; RESP 17; TEMP 98.9; O2SAT 96
[2017-10-07 16:05] LABS: BICARBONATE 29.6 MEQ/L (21.0-32.0); CALCIUM 8.4 MG/DL (8.5-10.1); CREATININE 0.57 MG/DL (0.60-1.30)
[2017-10-07] MEDS: MORPHINE SULFATE 30 MG/30 ML PCA IV SCH (16:28)
[2017-10-07 17:09] LABS: OVALOCYTES 1+ (NORMAL)
[2017-10-07 20:00] VITALS: BP 157/76; PULSE 93; RESP 20; TEMP 99.4; O2SAT 97
[2017-10-08] VITALS: BP 161/79; PULSE 88; RESP 20; TEMP 98.9; O2SAT 97
[2017-10-08 04:00] VITALS: BP 153/67; PULSE 82; RESP 20; TEMP 98.6; O2SAT 97
[2017-10-08] MEDS: PCA - TOTAL MG MORPHINE DELIVERED PER SHIFT SCH ×3 (05:01→20:57)
[2017-10-08] MEDS: LACTATED RINGER'S 1000 ML INJ 1,000 ML IV SCH ×2 (05:02→15:18)
[2017-10-08 08:00] VITALS: BP 171/74; PULSE 85; RESP 17; TEMP 97.8; O2SAT 97
[2017-10-08] MEDS: SODIUM CHLORIDE 0.9% FLUSH 10 ML FLUSH IV FLUSH SCH ×2 (09:00→20:57)
--- NOTE | 2017-10-08 10:47 | HHI.PR ---
Subjective Subjective Notes Resting in bed No complains at bedside Nervous about having Quach removed Objective Vitals/I&O Vital Signs Date Time Temp Pulse Resp B/P (MAP) Pulse Ox O2 Delivery O2 Flow Rate FiO2 10/08/17 08:00 97.8 85 17 171/74 (106) 97 10/05/17 20:45 Room Air 10/05/17 11:53 21 10/04/17 07:00 2.00 Labs Laboratory Tests Test 10/07/17 14:24 White Blood Count 6.1 Red Blood Count 4.15 Hemoglobin 12.0 Hematocrit 34.9 Mean Corpuscular Volume 84.1 Mean Corpuscular Hemoglobin 28.9 Mean Corpuscular Hemoglobin Concent 34.4 Red Cell Distribution Width 16.7 Platelet Count 155 Mean Platelet Volume 7.1 Neutrophils (%) (Auto) 78.3 Lymphocytes (%) (Auto) 8.8 Monocytes (%) (Auto) 11.0 Eosinophils (%) (Auto) 1.3 Basophils (%) (Auto) 0.6 Neutrophils # (Auto) 4.8 Lymphocytes # (Auto) 0.5 Monocytes # (Auto) 0.7 Eosinophils # (Auto) 0.1 Basophils # (Auto) 0.0 CBC Comment AUTO DIFF Differential Comment AUTO DIFF CONFIRMED Platelet Estimate LOW Platelet Morphology Comment NORMAL Ovalocytes 1+ Blood Urea Nitrogen 14 Creatinine 0.57 Random Glucose 71 Calcium Level 8.4 Sodium Level 139 Potassium Level 4.2 Chloride Level 100 Carbon Dioxide Level 29.6 Anion Gap 9 Estimat Glomerular Filtration Rate 139 Cardiovascular: Regular Lungs: Clear Abdomen: Other (MOHSEN in place with mild drainage; J tube in place; JOSE M with SS drainage ) Extremities: No edema Narrative Exam Quach in place A/P Assessment and Plan 77 year old male POD5 subtotal gastrectomy -Lab work from yesterday good -NGT out; clear liquids -COMMUNITY HEALTH REPRESENTATIVE for pain; decrease IVF -Lovenox -OOB -IS -DC Quach Attending Statement The exam, history, and the medical decision-making described in the above note were completed with the assistance of the mid-level provider. I reviewed and agree with the findings presented. I attest that I had a [id number] encounter with the patient on the same day, and personally performed and documented my assessment and findings in the medical record. stable postop, no signs of complications DC NG and start sips of clears increase tube feeds via j-tube slowly OOB with PT Tequila GordonP/Garage Helper SUPERVISOR PURIFICATION October 08, 2017 10:47 Alton Lucas MD October 09, 2017 12:19
[2017-10-08 12:00] VITALS: BP 142/82; PULSE 82; RESP 18; TEMP 98.5; O2SAT 98
[2017-10-08] MEDS: ENOXAPARIN SODIUM 40 MG/0.4 ML SYRINGE SQ SCH (15:35)
[2017-10-08] MEDS: MORPHINE SULFATE 30 MG/30 ML PCA IV SCH (15:57)
[2017-10-08 16:00] VITALS: BP 158/72; PULSE 92; RESP 17; TEMP 98.9; O2SAT 96
[2017-10-08 20:00] VITALS: BP 159/73; PULSE 86; RESP 20; TEMP 98; O2SAT 95
[2017-10-09] VITALS: BP 150/81; PULSE 92; RESP 20; TEMP 98; O2SAT 95
[2017-10-09 04:00] VITALS: BP 143/67; PULSE 78; RESP 20; TEMP 98; O2SAT 97
[2017-10-09] MEDS: PCA - TOTAL MG MORPHINE DELIVERED PER SHIFT SCH (05:45)
[2017-10-09 08:16] VITALS: BP 150/72; PULSE 79; RESP 15; TEMP 98.6; O2SAT 96
[2017-10-09] MEDS: SODIUM CHLORIDE 0.9% FLUSH 10 ML FLUSH IV FLUSH SCH ×2 (09:00→20:59)
[2017-10-09] MEDS: LACTATED RINGER'S 1000 ML INJ 1,000 ML IV SCH (09:27)
--- NOTE | 2017-10-09 10:13 | HHI.PR ---
Subjective Subjective Notes Up to chair Already walked with PT in the hallways this morning Objective Vitals/I&O Vital Signs Date Time Temp Pulse Resp B/P (MAP) Pulse Ox O2 Delivery O2 Flow Rate FiO2 10/09/17 08:16 98.6 79 15 150/72 (98) 96 10/05/17 20:45 Room Air 10/05/17 11:53 21 Cardiovascular: Regular Lungs: Clear Abdomen: Other (MOHSEN in place; JOSE M with SS drainage; J tube in place with TF ) Extremities: No edema Narrative Exam Quach out A/P Assessment and Plan 77 year old male POD6 subtotal gastrectomy -Increase TF to 30 cc/hr -Clear liquids--- 6 oz every 4 hours -Decrease IVF -ONLINE RETAILER for pain; decrease IVF -Lovenox -OOB -IS -Plan to advance to full liquids tomorrow---depending on how well the patient is able to tolerate full liquids will depend on if the patient will go home on TF Attending Statement The exam, history, and the medical decision-making described in the above note were completed with the assistance of the mid-level provider. I reviewed and agree with the findings presented. I attest that I had a [id number] encounter with the patient on the same day, and personally performed and documented my assessment and findings in the medical record. stable postop, no signs of complications increase diet to fulls next 24h if continues to tolerate clears increase tube feeds via j-tube slowly OOB with PT possible DC this weekend Tequila Gordon/Database Report Writer TORCH SOLDERER October 09, 2017 10:13 Alton Lucas MD October 09, 2017 12:21
[2017-10-09] MEDS ORDERED: ACETAMINOPHEN/HYDROcodone 325 MG/5 MG TAB PO PRN ×2 (10:15)
[2017-10-09 12:37] VITALS: BP 153/81; PULSE 84; RESP 16; TEMP 98.4; O2SAT 95
[2017-10-09] MEDS: ENOXAPARIN SODIUM 40 MG/0.4 ML SYRINGE SQ SCH (14:59)
[2017-10-09 16:01] VITALS: BP 142/66; PULSE 88; RESP 15; TEMP 98.8; O2SAT 95
[2017-10-09 20:00] VITALS: BP 165/72; PULSE 98; RESP 18; TEMP 97.9; O2SAT 95
[2017-10-10] VITALS: BP 156/74; PULSE 94; RESP 18; TEMP 97.7; O2SAT 95
[2017-10-10] MEDS: LACTATED RINGER'S 1000 ML INJ 1,000 ML IV SCH (05:28)
[2017-10-10] MEDS: SODIUM CHLORIDE 0.9% FLUSH 10 ML FLUSH IV FLUSH SCH ×2 (07:52→21:26)
[2017-10-10 08:00] VITALS: BP 160/73; PULSE 90; RESP 17; TEMP 98.1; O2SAT 90
--- NOTE | 2017-10-10 11:34 | HHI.PR ---
Subjective Subjective Notes Up to chair Walked earlier today and going to walk again today Objective Vitals/I&O Vital Signs Date Time Temp Pulse Resp B/P (MAP) Pulse Ox O2 Delivery O2 Flow Rate FiO2 10/10/17 08:00 98.1 90 17 160/73 (102) 90 Cardiovascular: Regular Lungs: Clear Abdomen: Other (MOHSEN in place; J tube with TF; JOSE M with SS drainage ) Extremities: No edema Narrative Exam Quach out A/P Assessment and Plan 77 year old male POD7 subtotal gastrectomy -Continue TF to 30 cc/hr -Advance to full liquids -Hargill for pain control -Lovenox -OOB -IS Attending Statement The exam, history, and the medical decision-making described in the above note were completed with the assistance of the mid-level provider. I reviewed and agree with the findings presented. I attest that I had a [id number] encounter with the patient on the same day, and personally performed and documented my assessment and findings in the medical record. s/p subtotal gastrectomy and RNY stable tolerating PO OOB violet j-tube feeds Tequila GordonP/Network Operations Technician DIRECTOR OF MANAGED SERVICES October 10, 2017 11:34 Alton Lucas MD October 11, 2017 13:47
[2017-10-10 12:00] VITALS: BP 144/74; PULSE 89; RESP 17; TEMP 98; O2SAT 98
[2017-10-10] MEDS: ENOXAPARIN SODIUM 40 MG/0.4 ML SYRINGE SQ SCH (13:02)
[2017-10-10 16:00] VITALS: BP 117/78; PULSE 88; RESP 17; TEMP 99.5; O2SAT 91
[2017-10-10 20:00] VITALS: BP 132/65; PULSE 82; RESP 17; TEMP 98.2; O2SAT 97
[2017-10-11] VITALS: BP 124/68; PULSE 76; RESP 17; TEMP 97.8; O2SAT 97
[2017-10-11 08:00] VITALS: BP 134/70; PULSE 71; RESP 18; TEMP 98.3; O2SAT 96
[2017-10-11] MEDS: SODIUM CHLORIDE 0.9% FLUSH 10 ML FLUSH IV FLUSH SCH ×2 (08:40→20:15)
[2017-10-11] MEDS: LACTATED RINGER'S 1000 ML INJ 1,000 ML IV SCH (08:40)
[2017-10-11 12:00] VITALS: BP 148/76; PULSE 86; RESP 18; TEMP 99; O2SAT 98
--- NOTE | 2017-10-11 14:20 | HHI.PR ---
Subjective Subjective Notes feels well, eating some fulls Objective Vitals/I&O Vital Signs Date Time Temp Pulse Resp B/P (MAP) Pulse Ox O2 Delivery O2 Flow Rate FiO2 10/11/17 12:00 99.0 86 18 148/76 (100) 98 Cardiovascular: Regular Lungs: Clear Abdomen: Non-distended, Post-op tenderness Extremities: No edema, Perfused Narrative Exam wound c/d/i A/P Assessment and Plan 77yo male s/p subtotal gastrectomy, stable. tolerating PO, fulls on supplement night-time feeds if tolerates acquit PO calories on full liquids can DC home on full liquids over weekend without tube feeds Alton Lucas MD October 11, 2017 14:20
[2017-10-11] MEDS: ENOXAPARIN SODIUM 40 MG/0.4 ML SYRINGE SQ SCH (14:30)
[2017-10-11 16:00] VITALS: BP 158/68; PULSE 84; RESP 18; TEMP 98.2; O2SAT 98
[2017-10-11 20:00] VITALS: BP 148/63; PULSE 72; RESP 18; TEMP 98.4; O2SAT 98
[2017-10-12] VITALS: BP 131/60; PULSE 70; RESP 17; TEMP 98; O2SAT 98
[2017-10-12 08:00] VITALS: BP 136/70; PULSE 91; RESP 18; TEMP 98.1; O2SAT 96
[2017-10-12] MEDS: SODIUM CHLORIDE 0.9% FLUSH 10 ML FLUSH IV FLUSH SCH ×2 (08:26→20:12)
[2017-10-12] MEDS: LACTATED RINGER'S 1000 ML INJ 1,000 ML IV SCH (08:26)
[2017-10-12 12:00] VITALS: BP 148/68; PULSE 83; RESP 18; TEMP 98; O2SAT 97
[2017-10-12] MEDS: ENOXAPARIN SODIUM 40 MG/0.4 ML SYRINGE SQ SCH (13:50)
[2017-10-12] MEDS ORDERED: BISACODYL 10 MG SUPP RECTAL ONE (14:00)
[2017-10-12] MEDS ORDERED: MAGNESIUM HYDROXIDE SUSP 30 ML CUP PO PRN (14:00)
[2017-10-12 16:00] VITALS: BP 157/74; PULSE 75; RESP 16; TEMP 98.2; O2SAT 99
--- NOTE | 2017-10-12 18:12 | HHI.PR ---
Subjective Subjective Notes Tolerated full liquid breakfast States he feels constipated; wants something for this Objective Vitals/I&O Vital Signs Date Time Temp Pulse Resp B/P (MAP) Pulse Ox O2 Delivery O2 Flow Rate FiO2 10/12/17 16:00 98.2 75 16 157/74 (101) 99 Lungs: Clear Abdomen: Non-distended, Non-tender Narrative Exam Feeding tube site clean Hagerman intact without erythema A/P Assessment and Plan POD #9 subtotal gastrectomy On night time tube feeds Calorie count started; if tolerating adequate intake, may go home without feedings Will have nursing instruct family on tube feeding in case he needs it still. Otherwise doing well Will advance to post gastrectomy diet (three small meals and three snacks) Panchito Fragoso MD October 12, 2017 18:12
[2017-10-12 20:00] VITALS: BP 142/66; PULSE 77; RESP 18; TEMP 98; O2SAT 97
[2017-10-13] VITALS: BP 141/68; PULSE 74; RESP 18; TEMP 98.2; O2SAT 97
[2017-10-13 08:00] VITALS: BP 156/72; PULSE 75; RESP 20; TEMP 98.2; O2SAT 97
[2017-10-13] MEDS: SODIUM CHLORIDE 0.9% FLUSH 10 ML FLUSH IV FLUSH SCH ×2 (08:41→23:09)
--- NOTE | 2017-10-13 10:57 | HHI.PR ---
Subjective Subjective Notes Feels fine, tolerating po, walking around, denies pain. bowels working. Objective Vitals/I&O Vital Signs Date Time Temp Pulse Resp B/P (MAP) Pulse Ox O2 Delivery O2 Flow Rate FiO2 10/13/17 08:00 98.2 75 20 156/72 (100) 97 Abdomen: Non-distended, Non-tender, BS normal Narrative Exam g tube intact, wound clean/dry, dora intact. drain site healed. A/P Assessment and Plan s/p gastrectomy plan DC tomorrow will await calorie count to see if he need tube feeds will add ensure. Taran Gutierrez MD October 13, 2017 10:57
[2017-10-13 12:00] VITALS: BP 161/80; PULSE 94; RESP 17; TEMP 97.7; O2SAT 100
[2017-10-13] MEDS: ENOXAPARIN SODIUM 40 MG/0.4 ML SYRINGE SQ SCH (14:25)
[2017-10-13 16:00] VITALS: BP 155/67; PULSE 82; RESP 19; TEMP 98; O2SAT 99
[2017-10-13 20:00] VITALS: BP 145/67; PULSE 82; RESP 16; TEMP 98.3; O2SAT 96
[2017-10-14] VITALS: BP 132/65; PULSE 73; RESP 16; TEMP 97.9; O2SAT 100
[2017-10-14 08:00] VITALS: BP 146/68; PULSE 78; RESP 17; TEMP 98; O2SAT 98
[2017-10-14] MEDS: SODIUM CHLORIDE 0.9% FLUSH 10 ML FLUSH IV FLUSH SCH (08:16)
--- NOTE | 2017-10-14 10:29 | HHI.PR ---
Subjective Subjective Notes eating well Objective Vitals/I&O Vital Signs Date Time Temp Pulse Resp B/P (MAP) Pulse Ox O2 Delivery O2 Flow Rate FiO2 10/14/17 08:00 98.0 78 17 146/68 (94) 98 Abdomen: Non-distended, Non-tender Extremities: No edema Narrative Exam wound c/d/i A/P Assessment and Plan 77yo male s/p subtotal gastrectomy, stable. tolerating PO, fulls well ok to Dc home Alton Lucas MD October 14, 2017 10:29
== END 2017-10-14 12:14 | disposition home or self-care (01) | DRG 327 ==
LOC: HSDI 10-03 08:45 → N03B 10-03 18:16 → N07A 10-04 18:56
PROVIDERS: ADMIT Surgery; ATTEND Surgery
PROC: 0DBV0ZZ Excision of Mesentery, Open Approach (ICD-10-PCS; 2017-10-03)
PROC: 0FB20ZX Excision of Left Lobe Liver, Open Approach, Diagnostic (ICD-10-PCS; 2017-10-03)
PROC: 07BB0ZX Excision of Mesenteric Lymphatic, Open Approach, Diagnostic (ICD-10-PCS; 2017-10-03)
PROC: 0DQV0ZZ Repair Mesentery, Open Approach (ICD-10-PCS; 2017-10-03)
PROC: 0DHA0UZ Insertion of Feeding Device into Jejunum, Open Approach (ICD-10-PCS; 2017-10-03)
PROC: 3E0T3BZ Introduction of Anesthetic Agent into Peripheral Nerves and Plexi, Percutaneous Approach (ICD-10-PCS; 2017-10-03)
PROC: 0DB60ZZ Excision of Stomach, Open Approach (ICD-10-PCS; principal; 2017-10-03 11:25)
DX: C16.9 Malignant neoplasm of stomach, unspecified (principal); C78.7 Secondary malignant neoplasm of liver and intrahepatic bile duct; D63.8 Anemia in other chronic diseases classified elsewhere; C78.6 Secondary malignant neoplasm of retroperitoneum and peritoneum; D64.9 Anemia, unspecified; Z92.21 Personal history of antineoplastic chemotherapy; I10 Essential (primary) hypertension; E78.5 Hyperlipidemia, unspecified; M19.90 Unspecified osteoarthritis, unspecified site; Z87.891 Personal history of nicotine dependence; D50.9 Iron deficiency anemia, unspecified; K59.00 Constipation, unspecified; Z23 Encounter for immunization
CPT/HCPCS: 76937; 80048; 85007; 85025; 85027; 86850; 86900; 86901; 86920; 87641; 88305; 88307; 88309; 90732; 94150; J0131; J0690; J1100; J1450; J1650; J2270; J2370; J2405; J2710; J2795; J3010; J7120